=== PATIENT | female | born 1995 | race Caucasian/White ===

== ENCOUNTER → 2016-08-22 | Outpatient (CLI) | payer OTHER ==
--- NOTE | 2016-08-22 16:56 | CT ---
EXAMINATION TYPE: CT iac wo con DATE OF EXAM: 08/22/2016 4:45 PM COMPARISON: NONE HISTORY: Multiple ear surgeries and bilateral ear pain. CT DLP: 150.00mGycm Automated exposure control for dose reduction was used. FINDINGS: Partial mastoidectomies are seen bilaterally. Soft tissue within the mastoidectomy cavity o n the left has resolved as has most of the soft tissue identified previously within the left middle e ar extending into the attic ad antrum. Small amount of residual tissue is seen within the attic on th e left compatible with small residual cholesteatoma although the appearance is significantly improved relative to the prior study. On the right though there is also a small amount of soft tissue within the attic also consistent with small cholesteatoma a new finding since prior examination. Ossicular c tiffany on the right appears intact while the left-sided ossicular chain demonstrates postsurgical nagel e. Extensive pansinusitis noted. IMPRESSION: 1. Postoperative changes as discussed. 2. Soft tissue within the bilateral attic suggesting small residual cholesteatomas. As noted on the l eft there has been significant improvement.
== END ==
LOC: RADCTMAIN 16:06
PROVIDERS: ATTEND Otolaryngology Otology & Neurotology
DX: H90.6 Mixed conductive and sensorineural hearing loss, bilateral (principal); Z98.890 Other specified postprocedural states
CPT/HCPCS: 70480

== ENCOUNTER 2017-11-13 18:53 | Outpatient (CLI) | payer OTHER ==
[2017-11-13] MEDS ORDERED: ACETAMINOPHEN TAB 325 MG TAB PO STA (19:24)
[2017-11-13 19:38] LABS: Appearance,Urine Cloudy (Clear); Bacteria,Urine Occasional /hpf; Bilirubin,Urine Negative (Negative); Blood,Urine Negative (Negative); Color,Urine Yellow; Glucose,Urine (UA) Negative (Negative); Ketones,Urine Negative (Negative); Leukocyte Esterase,Urine Large (Negative); Mucus,Urine Rare /hpf; Nitrite,Urine Negative (Negative); PH, Urine 6.5 (5.0-8.0); Protein,Urine Trace (Negative); RBC,Urine 2 /hpf (0-5); Squamous Epithelial Cell,Urine 40 /hpf (0-4); Urobilinogen,Urine <2.0 mg/dL (<2.0); WBC,Urine 1 /hpf (0-5)
[2017-11-13 20:16] VITALS: BP 119/58; PULSE 88; RESP 16; TEMP 97.8
--- NOTE | 2017-12-02 07:40 | P.MSEPDOC ---
Presenting Problems - Arrival Data Date of Arrival on Unit: 11/13/17 Time of Arrival on Unit: 18:53 Mode of Transport: Wheelchair - Complaint OB-Reason for Admission/Chief Complaint: Pain Comment: mid lower abdominal pain that is constant while she is active, rates pain at an 8 out 10 during active and states pain goes away when she is sitting and resting. Medical History - Information : 2 Para: 1 Term: 1 : 0 Abortions: Spontaneous or Elective: 0 Number of Living Children: 1 - Gestational Age Gestational Age by ROBERT (wks/days): 27 Weeks and 6 Days Review of Systems - Review of Systems Constitutional: No problems Breast: No problems ENT: No problems Cardiovascular: No problems Respiratory: No problems Gastrointestinal: No problems Genitourinary: No problems Musculoskeletal: No problems Neurological: No problems Skin: No problems Vital Signs - Temperature Temperature: 97.8 F Temperature Source: Temporal Artery Scan - Pulse Left Pulse Rate: 88 Pulse Assessment Method: Automatic Cuff - Respirations Respiratory Rate: 16 Oxygen Delivery Method: Room Air O2 Sat by Pulse Oximetry: 98 - Blood Pressure Left Arm Blood Pressure: 119/58 Blood Pressure Mean: 78 Blood Pressure Source: Automatic Cuff Medical Screen Scoring (Pre) - Cervical Exam Dilation: Exam Deferred Effacement: Exam Deferred - Uterine Contractions Frequency: N/A Duration: N/A Intensity: N/A - Maternal Vital Signs Maternal Temperature: N/A Maternal Blood Pressure: N/A Signs of Preeclampsia: N/A Maternal Respirations: N/A - Pain Assessment Pain Location and Character: Lower, Medial, Abdomen Pain Scale Used: Numeric (1 - 10) Pain Intensity: 8 Pain Management Goal: 3 Pain Description: *Acute, Aching Pain Frequency: Constant Pain Duration: 3 Pain Duration Units: Days Pain Behavior: None Exhibited Pain Aggravating Factors: Activity - Maternal Trauma Maternal Trauma: N/A - Assessment Baseline FHR: 140 Position: N/A Station: N/A - Total Score Total Score (Pre): 0 - Level of Risk Level of Risk: Low (0-5) Physician Notification (Pre) - Physician Notified Physician Notified Date: 11/13/17 Physician Notified Time: 19:21 Physician/Practitioner Notifed:: Dr Chamberlain New Order Received: Yes - Notification Comment Comment: 650mg of Tylenol, send u/a, belly band for support Disposition - Disposition OB Disposition: Discharge to home Discharge Date: 11/13/17 Discharge Time: 20:10 I agree with the RN Medical Screening Exam: Yes Risk & Benefit of care provided described in d/c instruction: Yes Diagnosis: 27 WEEKS GESTATION OF
== END 2017-11-13 20:10 | disposition home or self-care (01) ==
LOC: FBPOP 18:53
PROVIDERS: ATTEND Obstetrics & Gynecology
DX: O26.893 Other specified pregnancy related conditions, third trimester (principal); R10.30 Lower abdominal pain, unspecified; Z3A.27 27 weeks gestation of pregnancy
CPT/HCPCS: 81001; G0463; 99213

== ENCOUNTER 2018-01-08 19:38 | Inpatient (IN) | payer OTHER ==
--- NOTE | 2018-01-08 22:08 | US ---
EXAMINATION TYPE: US OB >= 14 wk fetus DATE OF EXAM: 01/08/2018 COMPARISON: None CLINICAL HISTORY: DARCIE, complete OBPain check DARCIE. TECHNIQUE: Transabdominal (TA) GESTATIONAL AGE / DATING Physician Established: (35 weeks/6 days) EDC: 02/06/2018 Dates by LMP: (35 weeks/6 days) EDC: 02/06/2018 Dates by First Scan: No previous this is first scan Dates by Current Scan: (33 weeks/3 days) EDC: 02/23/2018 SURVEY IUP: Single PLACENTA: Posterior PREVIA: No Previa DARCIE: 12.4 cm Normal CERVICAL LENGTH (transabdominal: norm > 3.0cm): 3.7 cm BIOMETRY PRESENTATION: Vertex LIE: Longitudinal BPD: 8.7 cm 35 weeks / 1 days HC: 31.09 cm 34 weeks / 5 days AC: 26.13 cm 30 weeks / 2 days FL: 6.6 cm 34 weeks / 1 days ESTIMATED WEIGHT IN GRAMS: 1947 grams ESTIMATED WEIGHT IN LBS/OZ: 4 lbs. 5 oz. WEIGHT PERCENTAGE BASED ON ESTABLISHED DATES: <3% HC/AC: 1.19 Abnormal FL/AC: 25.34 Abnormal HEART RATE: 140 bpm RHYTHM: Normal Good movement. AC measured smaller. DARCIE is within normal limits. IMPRESSION: Amniotic fluid appears adequate. No complicating process seen.
[2018-01-09] MEDS: LACTATED RINGERS 1,000 ML IV SCH ×4 (01:41→13:32)
[2018-01-09 02:00] LABS: Basophils # (A) 0.1 k/uL (0-0.2); Basophils % (A) 0 %; Eosinophils # (A) 0.4 k/uL (0-0.7); Eosinophils % (A) 3 %; HCT 35.1 % (34.0-46.0); HGB 11.8 gm/dL (11.4-16.0); Lymphocytes # (A) 2.3 k/uL (1.0-4.8); Lymphocytes % (A) 16 %; MCH 28.1 pg (25.0-35.0); MCHC 33.6 g/dL (31.0-37.0); MCV 83.4 fL (80.0-100.0); Mean Platelet Volume 8.3; Monocytes # (A) 0.7 k/uL (0-1.0); Monocytes % (A) 5 %; Neutrophils # (A) 10.6 k/uL (1.3-7.7); Neutrophils % (A) 75 %; Platelet Count 187 k/uL (150-450); RBC 4.21 m/uL (3.80-5.40); WBC 14.3 k/uL (3.8-10.6)
--- NOTE | 2018-01-09 08:51 | P.HPOB ---
History of Present Illness H&P Date: 01/09/18 Chief Complaint: Irregular uterine contractions This is a 22-year-old white female 2 para 1001 EDC 02/06/2018 at 36 weeks' gestation. Patient presented last night for labor check, complaining of vaginal pressure and uterine contractions. She was not judged to be in active labor, however in evaluating heart tones occasional late variable decelerations were noted. She was kept through the night, IV was started. In reviewing heart tones, the patient is having sporadic late variable decelerations from a baseline 140 into the 80s to 90s. Ultrasound was performed , this reveals normal amniotic fluid index, but estimated weight less than 3rd percentile consistent with severe IUGR. I've discussed the case with maternal- medicine at [facility] in the recommendation is made for delivery. Past medical history is significant for seasonal ALLERGIES. Past surgical history hernia repair, eustachian tubes. Current medications vitamins daily. ALLERGIES none known. Family history significant for asthma, breast cancer, COPD, gestational diabetes , heart disease, hypertension, leukemia, osteoporosis. Past COMPUTER TECHNICAL SPECIALIST history is unremarkable. Past obstetric history normal spontaneous vaginal delivery at 39 weeks gestation in 2013 of 7 lbs. 12 oz. , unremarkable. Social history patient is single, she has never been a smoker, she denies alcohol or drug use. Obstetric history is significant for negative group B strep cultures, 1 hour Glucola 124, blood type positive, rubella status immune. Urine culture, hepatitis B surface antigen, HIV testing all negative. On exam this is a pleasant white female who is 5 foot 0 inches, 139 pounds, blood pressure 127/69. The general physical exam is within normal limits. The cervix is 2-3 cm dilated, 50% effaced, -2 station, vertex presentation. heart rate at this time is in the 140s with frequent accelerations, and occasional variable deceleration. Artificial amniorrhexis reveals clear fluid, scalp lead is applied. Uterine contractions occurring approximately every 8 minutes apart. Impression: 36 weeks intrauterine , severe IUGR, nonreassuring heart tones with late variable decelerations noted. After discussion with high corporate risk analyst, decision has been made to proceed with delivery. Plan: Oxytocin augmentation per hospital protocol. Betamethasone now for late term status. Close maternal and surveillance. Anticipate normal spontaneous vaginal delivery pending based on heart tones status. Review of Systems Constitutional: Reports as per HPI Past Medical History Past Medical History: No Reported History Additional Past Medical History / Comment(s): congenital cleft palate History of Any Multi-Drug Resistant Organisms: None Reported Past Surgical History: Ear Surgery, Hernia Repair Additional Past Surgical History / Comment(s): tubes in ears, facial/mouth reconstruction Past Anesthesia/Blood Transfusion Reactions: No Reported Reaction Past Psychological History: No Psychological Hx Reported Smoking Status: Current some day smoker Past Alcohol Use History: None Reported Past Drug Use History: None Reported - Past Family History Mother Family Medical History: Hypertension, Thyroid Disorder Medications and Allergies Home Medications Medication Instructions Recorded Confirmed Type Pnv,Calcium 72/Iron/Folic Acid 1 tab PO DAILY 11/13/17 01/08/18 History [ Plus Tablet] Allergies Allergy/AdvReac Type Severity Reaction Status Date / Time No Known Allergies Allergy Verified 01/08/18 19:51 Exam Vital Signs Temp Pulse Resp BP 01/08/18 20:44 97.5 F L 67 16 127/69 Intake and Output 01/08/18 01/09/18 01/09/18 22:59 06:59 14:59 Intake Total 1000 Balance 1000 Intake: Intake, IV Titration 1000 Amount Lactated Ringers 1,000 ml 1000 @ 125 mls/hr IV .Q8H SAVANAH Rx#:[id number] Other: # Voids 1 Weight 63.049 kg Results Result Diagrams: 01/09/18 01:40 Abnormal Lab Results - Last 24 Hours (Table) 01/09/18 Range/Units 01:40 WBC 14.3 H (3.8-10.6) k/uL Neutrophils # 10.6 H (1.3-7.7) k/uL Assessment and Plan Plan: Oxytocin augmentation at this time. Betamethasone 1. Oxytocin per hospital protocol. Betamethasone 1 now. Close maternal and surveillance. Normal spontaneous vaginal delivery versus primary pending FHT's. Time with Patient: Greater than 30
[2018-01-09] MEDS: BETAMET ACET-BETAMETH SOD PHOS 6 MG/ML VIAL IM SCH (08:55)
[2018-01-09] MEDS ORDERED: CARBOPROST TROMETHAMINE 250 MCG/ML 1 ML AMP IM PRN (08:58)
[2018-01-09] MEDS ORDERED: METHYLERGONOVINE 0.2 MG/ML 1 ML AMP IM PRN ×2 (08:58→08:59)
[2018-01-09] MEDS ORDERED: TERBUTALINE 1 MG/ML VIAL SQ PRN (08:58)
[2018-01-09] MEDS ORDERED: LIDOCAINE 1% (PF) 10 MG/ML (30 ML SDV) SQ PRN ×2 (08:58→08:59)
[2018-01-09] MEDS ORDERED: OXYTOCIN 10 UNIT/ML 1 ML VIAL IM PRN (08:58)
[2018-01-09] MEDS ORDERED: OXYTOCIN 20 UNITS/1000 ML NS 1,000 ML IV SCH (09:00)
[2018-01-09] MEDS ORDERED: ROPIVACAINE 5MG/ML 20ML VIAL ONE (13:04)
[2018-01-09] MEDS ORDERED: fentaNYL (PF) 50 MCG/ML 5 ML AMP ONE (13:04)
[2018-01-09] MEDS ORDERED: SODIUM CHLORIDE 0.9% 100 ML BAG ONE (13:04)
[2018-01-09] MEDS ORDERED: HYDROcodone/APAP 5-325MG 1 EACH TAB PO PRN (15:48)
[2018-01-09] MEDS ORDERED: ACETAMINOPHEN TAB 325 MG TAB PO PRN (15:48)
[2018-01-09] MEDS ORDERED: SIMETHICONE 80 MG CHEWABLE PO PRN (15:48)
[2018-01-09] MEDS ORDERED: HYDROCORTISONE 2.5% RECTAL CREAM 30 GM TUBE RECTAL PRN (15:48)
[2018-01-09] MEDS ORDERED: diphenhydrAMINE 50 MG/ML 1 ML VIAL IVP PRN ×2 (15:48)
[2018-01-09] MEDS ORDERED: ZOLPIDEM 5 MG TAB PO PRN (15:48)
[2018-01-09] MEDS ORDERED: BENZOCAINE/MENTHOL SPRAY 1 GM/SPRAY AEROSOL TOPICAL PRN (15:48)
[2018-01-09] MEDS ORDERED: WITCH HAZEL 1 EACH MED..PAD TOPICAL PRN (15:48)
[2018-01-09] MEDS ORDERED: diphenhydrAMINE ELIXIR 25 MG/10 ML CUP PO PRN (15:48)
[2018-01-09] MEDS ORDERED: diphenhydrAMINE 25 MG CAP PO PRN (15:48)
[2018-01-09] MEDS ORDERED: diphenhydrAMINE 50 MG CAP PO PRN (15:48)
[2018-01-09] MEDS ORDERED: LANOLIN CREAM 5 GM TUBE TOPICAL PRN (15:48)
[2018-01-09] MEDS ORDERED: IBUPROFEN 600 MG TAB PO PRN (15:48)
--- NOTE | 2018-01-09 15:48 | P.PROBDLV ---
Vaginal Delivery Note - . Vaginal Delivery Note: This is a 22-year-old white female 2 para 1001 EDC 02/06/2018 at 36 weeks' gestation. Patient presented for a labor check, variable decelerations were noted. Over the course of the evening, positive OCT was noted and patient was admitted for delivery. Group B strep cultures negative, blood type O+, rubella status immune. Celestone 12 mg was given intramuscularly, the case was discussed with maternal- medicine at [facility] prior to decision making. Artificial amniorrhexis revealed clear fluid. Epidural was placed per her request. Uterine contractions commenced more regularly, at times variable decelerations as well as late variable decelerations were noted. Position changes, oxygen administration, and IV fluid resuscitation was given with good results. Patient had a prolonged deceleration at which time decision was made for . Just prior to bringing the patient back to the operating room final vaginal exam was done and patient was noted to be with anterior lip. With excellent expulsive efforts she became completely dilated and +2 station. Perineal body was prepped and draped in usual sterile fashion. With one additional push the infant's head delivered occiput anterior and restituted accordingly. Was no nuchal cord noted. The left or anterior shoulder was delivered easily from underneath the pubic symphysis at which time the oropharynx, nasopharynx, and external nares were bulb suctioned. Patient was officially delivered vaginally of a liveborn female infant at 1525 hrs. Umbilical cord was doubly clamped and ligated, she was handed to waiting nurses for evaluation where scores of 9 and 9 at one and 5 minutes respectively are given. The cord was noted to be quite thin, but trivascular. The placenta delivered spontaneously, it was inspected and noted to be rather small, but intact at 1527 hours. Uterus was massaged. Inspection of the cervix , vagina, perineum and periurethral areas was then performed. There was a small first-degree perineal laceration easily repaired with a single figure-of- eight suture. Infant weighed 4 lbs. 12 oz. or 2160 g. Patient and her family are allowed to begin the bonding experience in the LDR. Placenta is sent to pathology for further evaluation.
[2018-01-09] MEDS: SENNOSIDES-DOCUSATE SODIUM 1 EACH TAB PO SCH (22:01)
[2018-01-10] MEDS: SENNOSIDES-DOCUSATE SODIUM 1 EACH TAB PO SCH (07:32)
[2018-01-10 09:21] VITALS: BP 132/80; PULSE 84; RESP 16; TEMP 97.9
[2018-01-10] MEDS: BETAMET ACET-BETAMETH SOD PHOS 6 MG/ML VIAL IM SCH (09:21)
--- NOTE | 2018-01-10 09:35 | P.DS ---
Providers Date of admission: 01/08/18 22:23 Expected date of discharge: 01/10/18 Attending physician: Marlin Sage Primary care physician: Stated None Hospital Course: This is a 22-year-old white female 2 para 1001 EDC 02/06/2018 at 36 weeks' gestation. Patient presented for a labor check, but was found to have variable decelerations noted on monitoring. She was admitted overnight for observation, the decelerations continued and had a late nature. Ultrasound confirmed severe IUGR, consultation over the phone was obtained per maternal medicine, steroids were given, and the decision to deliver was made. Please see my dictated history and physical for details. Artificial amniorrhexis revealed clear fluid. Oxytocin was started and titrated per hospital protocol. There were episodes of late decelerations which corrected with position change, oxygen administration, and IV fluids. Ultimately the patient progressed and delivered vaginally a liveborn female infant with scores of 9 and 9 at one and 5 minutes respectively. weighed 4 lbs. 12 oz. or 2160 g. The was a small first-degree perineal laceration easily repaired, a small appearing placenta which was sent to pathology for evaluation, and an estimated blood loss of 250 mL's. Please see my dictated delivery note for details. Today the patient is doing well. She is voiding, ambulating and passing flatus without difficulty. Vital signs are stable and she is afebrile. Fundus is firm and in the midline, symmetric and 18 week size. Extremities are negative for edema. Chest is clear in all guillory. Dexter is doing well in the nursery , he is being evaluated for temperature very sure and as well as hypoglycemia. Patient however is electing discharge home and is in very good condition for discharge. Patient will follow-up in the office with me in 6 weeks. I have reminded her no intercourse, tampons or douching. She will use [id number] ibuprofen as needed for pain. She is declining option for a breast pump prescription. I have asked her to call me with any fevers shakes or chills, foul smelling or copious lochia, with the passage of large blood clots, with any pain not alleviated by ibuprofen products, or indeed with any questions issues or concerns. We have briefly reviewed options for contraception and we will discuss this further in the office. Patient Condition at Discharge: Good Plan - Discharge Summary Discharge Rx Participant: No New Discharge Prescriptions: No Action Pnv,Calcium 72/Iron/Folic Acid [ Plus Tablet] 1 tab PO DAILY Discharge Medication List Pnv,Calcium 72/Iron/Folic Acid [ Plus Tablet] 1 tab PO DAILY 11/13/17 [ History] Follow up Appointment(s)/Referral(s): Marlin Sage MD [STAFF PHYSICIAN] - 6 Weeks Discharge Disposition: HOME SELF-CARE
[2018-01-10] MEDS: LACTATED RINGERS 1,000 ML IV SCH ×3 (11:51→11:53)
== END 2018-01-10 15:15 | disposition home or self-care (01) | DRG 775 ==
LOC: FBPOP 19:38 → OBSVTOIN 22:23 → 4FBP 22:23
PROVIDERS: ADMIT Obstetrics & Gynecology; ATTEND Obstetrics & Gynecology
PROC: 10E0XZZ Delivery of Products of Conception, External Approach (ICD-10-PCS; principal; 2018-01-09)
PROC: 0HQ9XZZ Repair Perineum Skin, External Approach (ICD-10-PCS; 2018-01-09)
DX: O76 Abnormality in fetal heart rate and rhythm complicating labor and delivery (principal); O99.52 Diseases of the respiratory system complicating childbirth; O36.5930 Maternal care for other known or suspected poor fetal growth, third trimester, not applicable or unspecified; O70.0 First degree perineal laceration during delivery; O99.334 Smoking (tobacco) complicating childbirth; F17.200 Nicotine dependence, unspecified, uncomplicated; J30.2 Other seasonal allergic rhinitis; Z37.0 Single live birth; Z3A.36 36 weeks gestation of pregnancy; Z87.730 Personal history of (corrected) cleft lip and palate; Z82.62 Family history of osteoporosis; Z82.5 Family history of asthma and other chronic lower respiratory diseases; Z82.49 Family history of ischemic heart disease and other diseases of the circulatory system; Z80.3 Family history of malignant neoplasm of breast; Z80.6 Family history of leukemia
CPT/HCPCS: 59025; 76805; 85025; 86850; 86900; 86901; 88307; 99213

== ENCOUNTER → 2018-06-11 | Outpatient (CLI) | payer OTHER ==
--- NOTE | 2018-06-11 12:46 | CT ---
EXAMINATION TYPE: CT iac wo con DATE OF EXAM: 06/11/2018 COMPARISON: 08/22/2016 HISTORY: Chronic atticoantral suppurative otitis CT DLP: 213 mGycm. Automated Exposure Control for Dose Reduction was Utilized. TECHNIQUE: CT scan of internal auditory canal is performed without contrast, thin cut axial images ar e obtained, coronal reformatted images are also reviewed. FINDINGS: Again there is evidence of bilateral partial mastoidectomies. Left ossicular implant is redemonstrate d with chronic thickening of the left tympanic membrane. The previously seen minimal soft tissue dens ity within the epitympanum could relate to granulation tissue or residual cholesteatoma. The ossicular chain on the right appears intact. There is soft tissue density extending from the scut um along the tympanic membrane retracted tympanic membrane into the mesial tympanum to the oval windo w. This appears increased from the prior of 08/22/2016 and again could represent cholesteatoma with min imal blunting of the scutum. Presacral space appears clear. Semicircular canals and vestibules bilaterally appear unremarkable. Internal auditory canals are symm etric. There is mild mucosal thickening of the maxillary sinuses, slightly polypoid in nature and minimal mu cosal thickening in the ethmoid sinuses. Visualized portion of the frontal and sphenoid sinuses are w ell aerated. Remaining mastoid air cells also appear well aerated. Orbits are symmetric. IMPRESSION: 1. Increase in density within the right mesial temporal extending from the scutum to the oval window. This could represent viscous fluid or residual cholesteatoma. Prussak's space remains clear. 2. Minimal density remaining within the left epitympanum that may relate to granulation tissue or res idual cholesteatoma. This appears similar to the prior 2016 without progression. Chronic thickening o f the left tympanic membrane is noted with left ossicular implant. 3. Improved degree of polypoid maxillary and ethmoid sinusitis.
== END | disposition home or self-care (01) ==
LOC: RADCTMAIN 11:07
PROVIDERS: ATTEND Otolaryngology Otolaryngology/Facial Plastic Surgery
DX: H93.8X2 Other specified disorders of left ear (principal); H66.22 Chronic atticoantral suppurative otitis media, left ear; R93.89 Abnormal findings on diagnostic imaging of other specified body structures
CPT/HCPCS: 70480

== ENCOUNTER 2020-02-24 13:09 | Emergency (ER) | payer OTHER ==
[2020-02-24 13:21] VITALS: TEMP 98.1
[2020-02-24 13:57] LABS: Basophils % (A) 0 %; Eosinophils # (A) 0.8 k/uL (0-0.7); Eosinophils % (A) 7 %; HCT 40.5 % (34.0-46.0); HGB 13.8 gm/dL (11.4-16.0); Lymphocytes # (A) 1.6 k/uL (1.0-4.8); Lymphocytes % (A) 14 %; MCH 29.7 pg (25.0-35.0); MCHC 34.1 g/dL (31.0-37.0); MCV 87.1 fL (80.0-100.0); Mean Platelet Volume 8.3; Monocytes # (A) 0.2 k/uL (0-1.0); Monocytes % (A) 2 %; Neutrophils # (A) 8.5 k/uL (1.3-7.7); Neutrophils % (A) 76 %; Platelet Count 178 k/uL (150-450); RBC 4.65 m/uL (3.80-5.40); RDW 12.6 % (11.5-15.5); WBC 11.2 k/uL (3.8-10.6)
[2020-02-24 14:03] LABS: Appearance,Urine Turbid (Clear); Bilirubin,Urine Negative (Negative); Blood,Urine Small (Negative); Color,Urine Yellow; Glucose,Urine (UA) Negative (Negative); Ketones,Urine Negative (Negative); Leukocyte Esterase,Urine Large (Negative); Mucus,Urine Many /hpf; Nitrite,Urine Negative (Negative); PH, Urine 6.5 (5.0-8.0); Protein,Urine 1+ (Negative); RBC,Urine 9 /hpf (0-5); Specific Gravity,Urine 1.028 (1.001-1.035); Squamous Epithelial Cell,Urine 114 /hpf (0-4); WBC,Urine 12 /hpf (0-5)
--- NOTE | 2020-02-24 14:05 | ED ---
Abdominal Pain HPI - General Chief Complaint: Abdominal Pain Stated Complaint: newly , abd pain Time Seen by Provider: 02/24/20 13:22 Source: patient Mode of arrival: ambulatory Limitations: no limitations - History of Present Illness Initial Comments: Patient is a 24-year-old female presenting to the emergency Department with complaints of lower abdominal pain that has been intermittent for the last 3-4 months. Patient states she went to [facility] yesterday to be evaluated for lightheadedness, dizziness and did a test which did return positive. Patient states she's had a IUD in place since 2018. This was last checked by Dr. Sage last year and was in place. Patient states she has been having some mild vaginal discharge, no vaginal bleeding. Patient is . She's had no abdominal surgeries. She does admit to some mild nausea, no vomiting or diarrhea. No fevers or chills. No further complaints at this time. Upon arrival to the ER, her vitals are stable. - Related Data Home Medications Medication Instructions Recorded Confirmed Pnv,Calcium 72/Iron/Folic Acid 1 tab PO DAILY 11/13/17 01/08/18 [ Plus Tablet] Previous Rx's Medication Instructions Recorded Qqt-Hfun-Tdljp Acid 1 each PO DAILY #30 cap 02/24/20 [-U Capsule] Allergies Allergy/AdvReac Type Severity Reaction Status Date / Time No Known Allergies Allergy Verified 02/24/20 13:19 Review of Systems ROS Statement: Those systems with pertinent positive or pertinent negative responses have been documented in the HPI. ROS Other: All systems not noted in ROS Statement are negative. Past Medical History Past Medical History: No Reported History Additional Past Medical History / Comment(s): congenital cleft palate History of Any Multi-Drug Resistant Organisms: None Reported Past Surgical History: Ear Surgery, Hernia Repair Additional Past Surgical History / Comment(s): tubes in ears, facial/mouth r econstruction Past Anesthesia/Blood Transfusion Reactions: No Reported Reaction Past Psychological History: No Psychological Hx Reported Smoking Status: Never smoker Past Alcohol Use History: Occasional Past Drug Use History: None Reported - Past Family History Mother Family Medical History: Hypertension, Thyroid Disorder General Exam - General Exam Comments Initial Comments: GENERAL: Patient is well-developed and well-nourished. Patient is nontoxic and in no acute distress. HEAD: Atraumatic, normocephalic. EYES: Pupils equal round and reactive to light, extraocular movements intact, sclera anicteric, conjunctiva are normal. Eyelids were unremarkable. ENT: TMs normal, nares patent, oropharynx clear without exudates. Moist mucous membranes. NECK: Normal range of motion, supple without lymphadenopathy or JVD. LUNGS: Unlabored respirations. Breath sounds clear to auscultation bilaterally and equal. No wheezes rales or rhonchi. HEART: Regular rate and rhythm without murmurs, rubs or gallops. ABDOMEN: Mild discomfort of the lower abdomen, no specific area pain. Soft, normoactive bowel sounds. No guarding, no rebound. No masses appreciated. MUSCULOSKELETAL: Normal extremities with adequate strength and normal range of motion, no pitting or edema. No clubbing or cyanosis. NEUROLOGICAL: Patient is alert and oriented x 3. Motor and sensory are also intact. Cranial nerves II through XII grossly intact. Symmetrical smile. Normal speech, normal gait. PSYCH: Normal mood, normal affect. SKIN: Warm, Dry, normal turgor, no rashes or lesions noted. Limitations: no limitations External exam: Present: normal external exam Speculum exam: Present: cervical discharge, other (No IUD string visualized.). Absent: vaginal bleeding By manual exam: Present: normal by manual exam Course Vital Signs 02/24/20 02/24/20 02/24/20 13:17 14:00 14:30 Temperature 98.1 F Pulse Rate 94 97 96 Respiratory 18 18 16 Rate Blood Pressure 103/66 118/61 114/66 O2 Sat by Pulse 98 98 98 Oximetry 02/24/20 02/24/20 02/24/20 15:00 15:30 16:00 Temperature Pulse Rate 86 90 91 Respiratory 18 18 18 Rate Blood Pressure 108/67 113/53 102/58 O2 Sat by Pulse 98 98 100 Oximetry 02/24/20 02/24/20 16:30 17:00 Temperature Pulse Rate 89 Respiratory 18 Rate Blood Pressure 105/66 108/68 O2 Sat by Pulse 98 98 Oximetry Medical Decision Making - Medical Decision Making Patient is a 24-year-old female here for lower abdominal discomfort, currently has an IUD in place with a positive test yesterday at urgent care. Her vital signs are stable, she is not having vaginal bleeding. Vaginal exam did reveal some cervical discharge, no IUD string was visualized. Labs did confirm a positive beta hCG Quant at 155,000. Urine did not reveal evidence of UTI. Trichomonas was negative, genital culture and STD testing are pending at this time. Ultrasound did confirm a viable IUP with gestational age around 11 weeks, heart rate is 162. There was concern of IUD placement within the gestational sac. I did speak with on-call OB, Dr. Sage who was aware the patient and did come down and see her in the ER. Dr. Sage was able to remove the IUD using an MANAGER [employer]CHAND[employer] hook and forceps. Patient had minimal bleeding, tolerated procedure well. Patient is stable for discharge. She will follow up with Dr. Sage within one week. Patient is agreement with this plan of care. I will give patient prescription for vitamins as well as starter pack of Zofran for continued nausea. Return parameters were discussed with the patient and she verbalized understanding. Case discussed with Dr. Leggett. - Lab Data Result diagrams: 02/24/20 13:42 02/24/20 13:42 Lab Results 02/24/20 02/24/20 02/24/20 Range/Units 13:42 13:42 13:42 WBC 11.2 H (3.8-10.6) k/uL RBC 4.65 (3.80-5.40) m/uL Hgb 13.8 (11.4-16.0) gm/dL Hct 40.5 (34.0-46.0) % MCV 87.1 (80.0-100.0) fL MCH 29.7 (25.0-35.0) pg MCHC 34.1 (31.0-37.0) g/dL RDW 12.6 (11.5-15.5) % Plt Count 178 (150-450) k/uL Neutrophils % 76 % Lymphocytes % 14 % Monocytes % 2 % Eosinophils % 7 % Basophils % 0 % Neutrophils # 8.5 H (1.3-7.7) k/uL Lymphocytes # 1.6 (1.0-4.8) k/uL Monocytes # 0.2 (0-1.0) k/uL Eosinophils # 0.8 H (0-0.7) k/uL Basophils # 0.0 (0-0.2) k/uL Sodium 135 L (137-145) mmol/L Potassium 3.8 (3.5-5.1) mmol/L Chloride 107 (98-107) mmol/L Carbon Dioxide 21 L (22-30) mmol/L Anion Gap 7 mmol/L BUN 10 (7-17) mg/dL Creatinine 0.57 (0.52-1.04) mg/dL Est GFR (CKD-EPI)AfAm >90 (>60 ml/min/1.73 sqM) Est GFR (CKD-EPI)NonAf >90 (>60 ml/min/1.73 sqM) Glucose 106 H (74-99) mg/dL Calcium 9.2 (8.4-10.2) mg/dL Total Bilirubin 0.7 (0.2-1.3) mg/dL AST 17 (14-36) U/L ALT 12 (4-34) U/L Alkaline Phosphatase 49 (38-126) U/L Total Protein 6.7 (6.3-8.2) g/dL Albumin 4.1 (3.5-5.0) g/dL HCG, Quant 687193.0 mIU/mL Urine Color Yellow Urine Appearance Turbid H (Clear) Urine pH 6.5 (5.0-8.0) Ur Specific Mad[place] 1.028 (1.001-1.035) Urine Protein 1+ H (Negative) Urine Glucose (UA) Negative (Negative) Urine Ketones Negative (Negative) Urine Blood Small H (Negative) Urine Nitrite Negative (Negative) Urine Bilirubin Negative (Negative) Urine Urobilinogen 4.0 (<2.0) mg/dL Ur Leukocyte Esterase Large H (Negative) Urine RBC 9 H (0-5) /hpf Urine WBC 12 H (0-5) /hpf Ur Squamous Epith Cells 114 H (0-4) /hpf Urine Mucus Many H (None) /hpf Trichomonas Ag (Rapid) (Negative) 02/24/20 Range/Units 13:59 WBC (3.8-10.6) k/uL RBC (3.80-5.40) m/uL Hgb (11.4-16.0) gm/dL Hct (34.0-46.0) % MCV (80.0-100.0) fL MCH (25.0-35.0) pg MCHC (31.0-37.0) g/dL RDW (11.5-15.5) % Plt Count (150-450) k/uL Neutrophils % % Lymphocytes % % Monocytes % % Eosinophils % % Basophils % % Neutrophils # (1.3-7.7) k/uL Lymphocytes # (1.0-4.8) k/uL Monocytes # (0-1.0) k/uL Eosinophils # (0-0.7) k/uL Basophils # (0-0.2) k/uL Sodium (137-145) mmol/L Potassium (3.5-5.1) mmol/L Chloride (98-107) mmol/L Carbon Dioxide (22-30) mmol/L Anion Gap mmol/L BUN (7-17) mg/dL Creatinine (0.52-1.04) mg/dL Est GFR (CKD-EPI)AfAm (>60 ml/min/1.73 sqM) Est GFR (CKD-EPI)NonAf (>60 ml/min/1.73 sqM) Glucose (74-99) mg/dL Calcium (8.4-10.2) mg/dL Total Bilirubin (0.2-1.3) mg/dL AST (14-36) U/L ALT (4-34) U/L Alkaline Phosphatase (38-126) U/L Total Protein (6.3-8.2) g/dL Albumin (3.5-5.0) g/dL HCG, Quant mIU/mL Urine Color Urine Appearance (Clear) Urine pH (5.0-8.0) Ur Specific Madeline (1.001-1.035) Urine Protein (Negative) Urine Glucose (UA) (Negative) Urine Ketones (Negative) Urine Blood (Negative) Urine Nitrite (Negative) Urine Bilirubin (Negative) Urine Urobilinogen (<2.0) mg/dL Ur Leukocyte Esterase (Negative) Urine RBC (0-5) /hpf Urine WBC (0-5) /hpf Ur Squamous Epith Cells (0-4) /hpf Urine Mucus (None) /hpf Trichomonas Ag (Rapid) Negative (Negative) Disposition Clinical Impression: Abdominal pain in , Remove/insert IUD Disposition: HOME SELF-CARE Condition: Stable Instructions (If sedation given, give patient instructions): Abdominal Pain in (ED) Additional Instructions: Please return to the Emergency Department if symptoms worsen or any other concerns. Follow-up with Dr. Sage as discussed. May take Zofran for severe nausea. Prescriptions: Une-Ximz-Moehl Acid [-U Capsule] 1 each PO DAILY #30 cap Is patient prescribed a controlled substance at d/c from ED?: No Referrals: Wisam Davis DO [Primary Care Provider] - 1-2 days Marlin Sage MD [STAFF PHYSICIAN] - 1-2 days
[2020-02-24 14:06] LABS: ALT 12 U/L (4-34); AST 17 U/L (14-36); African American GFR (CKD) >90 (>60 ml/min/1.73 sqM); Albumin 4.1 g/dL (3.5-5.0); Alkaline Phosphatase 49 U/L (38-126); Anion Gap 7 mmol/L; Blood Urea Nitrogen 10 mg/dL (7-17); Calcium 9.2 mg/dL (8.4-10.2); Carbon Dioxide 21 mmol/L (22-30); Chloride 107 mmol/L (98-107); Glucose 106 mg/dL (74-99); Non-African American GFR(CKD) >90 (>60 ml/min/1.73 sqM); Potassium 3.8 mmol/L (3.5-5.1); Sodium 135 mmol/L (137-145); Total Bilirubin 0.7 mg/dL (0.2-1.3); Total Protein 6.7 g/dL (6.3-8.2)
[2020-02-24 16:18] VITALS: RESP 18
--- NOTE | 2020-02-24 16:33 | US ---
EXAMINATION TYPE: Transabdominal DATE OF EXAM: 02/24/2020 4:18 PM COMPARISON: NONE CLINICAL HISTORY: IUD, positive test, pain. EXAM PERFORMED: Transvaginal (TV) and Transabdominal (TA), endovaginal scanning performed for better evaluation of the uterus and EXAM MEASUREMENTS: GESTATIONAL AGE / DATING Physician Established: Not yet established Dates by LMP: LMP unknown Dates by Current Scan for: (11 weeks/1 days) EDC: 09/13/2020 MATERNAL ANATOMY Uterus: 11.2 x 6.7 x 7.8 cm Right Ovary: 2.0 x 1.6 x 1.6 cm Left Ovary: 3.4 x 1.7 x 2.4 cm Post CDS / Adnexa: wnl Presence of free fluid: No Presence of corpus luteal cyst: No Presence of subchorionic bleed: No GESTATION / SURVEY CRL: 4.4 cm (11 weeks/1 days) Heart Rate: 162 bpm Rhythm: Normal IUP: Viable IUP Beta HcG (if available): Not available at this time Viable IUP with an ROBERT of 09/13/2020. Echogenic focus with posterior shadowing may represent IUD visua lized inferior to the pole, images suggest placement within the gestational sac. IMPRESSION: Single viable intrauterine corresponding to ultrasound age 11 weeks 1 day with estimated da te of delivery 09/13/2020. IUD suggested to be in place as described.
[2020-02-24 17:05] VITALS: BP 108/68; PULSE 89
[2020-02-24] MEDS ORDERED: ONDANSETRON 4 MG ODT STARTER PACK 2 TAB BTL PO STA (17:10)
--- NOTE | 2020-02-24 17:39 | P.CON ---
Consult Note - . Consult date: 02/24/20 Assessment/Plan:: This is a 24-year-old white female 3 para 2001 with a Mirena IUD placed 2 years ago who presented to the emergency room with abdominal cramping. Beta hCG is positive, and ultrasound is performed consistent with a viable 11 week intrauterine , sonographic due date 09/13/2020. In addition, there is an IUD noted in the intrauterine cavity. I have been asked to consult for management. Past medical history is essentially negative. Past surgical history is negative. Current medications none. On targeted examination there is no cervical bleeding noted upon placing a speculum into the vaginal vault. There is a yellowish vaginal discharge which has been cultured. No IUD strings are visible. The cervix is swabbed with a Acevedo lab. The IUD hook is used, however I am unable to grasp the IUD strings. I Bosman forcep is then placed into the intracervical cavity and with gentle traction the Mirena IUD is removed and noted to be fully intact. It is visualized by both the patient, nursing staff, and the patient's mother. Patient reports very minimal cramping. There is no vaginal bleeding. There is no fluid leakage. The patient tolerates the IUD removal very well. Blood type O positive. Impression 11 week viable intrauterine with sonographic due date of 09/13/2020. Status post successful removal of Mirena IUD. Plan: Patient will follow-up in the office with me within one week. She has been given a prescription for Zofran to be used as needed for nausea. She will begin vitamins on a daily basis containing Bose catheter. All questions are answered.
[2020-02-25 14:43] LABS: C. trachomatis,PCR Negative (Neg,Equiv); Chlamydia trachomatis Source Cervix; N. gonorrhoeae,PCR Negative (Neg,Equiv); Neisseria Source Cervix
== END 2020-02-24 17:35 | disposition home or self-care (01) ==
LOC: EC 13:09
DX: O99.89 Other specified diseases and conditions complicating pregnancy, childbirth and the puerperium (principal); R10.30 Lower abdominal pain, unspecified; N88.8 Other specified noninflammatory disorders of cervix uteri; R11.0 Nausea; Z30.432 Encounter for removal of intrauterine contraceptive device; Z3A.11 11 weeks gestation of pregnancy
CPT/HCPCS: 99284; 36415; 80053; 85025; 81001; 84702; 87808; 87491; 87591; 87070; 87086; 76801; 76817; S0119

== ENCOUNTER 2020-03-16 22:55 | Emergency (ER) | payer OTHER ==
--- NOTE | 2020-03-17 00:02 | ED ---
General Adult HPI - General Chief complaint: Vaginal Bleeding Stated complaint: Abdominal Pain, vaginal bleeding, pgt Time Seen by Provider: 03/16/20 23:16 Source: patient Mode of arrival: ambulatory Limitations: no limitations - History of Present Illness Initial comments: This is a 24-year-old female who presents to the emergency department this mya paz with complaints of vaginal bleeding, onset 45 minutes to one hour prior to arrival. Also complains of lower abdominal cramping. States she is 14 weeks ; . Patient had positive test at an emergency department visit earlier in the month, at the same visit she had her IUD removed by Dr. Sage, and had US showing no complications. She describes bleeding as dark red and present on tissue when she wipes, but has not soaked through a pad. She did pass one small blood clot. Reports her cramping is located in her mid lower abdomen. Denies radiation to her back. Reports mild nausea that has persisted throughout her . States she is eating and drinking without any difficulty. Patient denies any recent rash, fever, chills, cough, shortness of breath, chest pain, vomiting, diarrhea, constipation, back pain, numbness, tingling, dizziness, weakness, hematuria, dysuria, urinary urgency, urinary frequency, headache, visual changes, or any other complaints. - Related Data Home Medications Medication Instructions Recorded Confirmed Pnv,Calcium 72/Iron/Folic Acid 1 tab PO DAILY 11/13/17 01/08/18 [ Plus Tablet] Previous Rx's Medication Instructions Recorded Syw-Fpff-Xnwrp Acid 1 each PO DAILY #30 cap 02/24/20 [-U Capsule] Allergies Allergy/AdvReac Type Severity Reaction Status Date / Time No Known Allergies Allergy Verified 03/16/20 22:58 Review of Systems ROS Statement: Those systems with pertinent positive or pertinent negative responses have been documented in the HPI. ROS Other: All systems not noted in ROS Statement are negative. Past Medical History Past Medical History: No Reported History Additional Past Medical History / Comment(s): congenital cleft palate History of Any Multi-Drug Resistant Organisms: None Reported Past Surgical History: Ear Surgery, Hernia Repair Additional Past Surgical History / Comment(s): tubes in ears, facial/mouth reconstruction Past Anesthesia/Blood Transfusion Reactions: No Reported Reaction Past Psychological History: No Psychological Hx Reported Smoking Status: Never smoker Past Alcohol Use History: Occasional Past Drug Use History: None Reported - Past Family History Mother Family Medical History: Hypertension, Thyroid Disorder General Exam Limitations: no limitations General appearance: alert, in no apparent distress, other (Well-developed, well- nourished female in no acute distress. Presenting with vital signs of temperature 97.9F, pulse 98, respirations 18, blood pressure 101/67, pulse ox 97% on room air.) Respiratory exam: Present: normal lung sounds bilaterally. Absent: respiratory distress, wheezes, rales, rhonchi, stridor Cardiovascular Exam: Present: regular rate, normal rhythm, normal heart sounds. Absent: systolic murmur, diastolic murmur, rubs, gallop, clicks GI/Abdominal exam: Present: soft, tenderness (Diffuse lower abdomen), normal bowel sounds Back exam: Present: normal inspection. Absent: CVA tenderness (R), CVA tenderness (L) Neurological exam: Present: alert, oriented X3, CN II-XII intact Psychiatric exam: Present: normal affect, normal mood Skin exam: Present: warm, dry, intact, normal color. Absent: rash Course Vital Signs 03/16/20 03/17/20 03/17/20 22:56 01:54 02:59 Temperature 97.9 F 98.7 F Pulse Rate 98 68 71 Respiratory 18 18 16 Rate Blood Pressure 101/67 107/70 110/66 O2 Sat by Pulse 97 99 97 Oximetry Medical Decision Making - Medical Decision Making 24-year-old female patient presented to the emergency department today for evaluation of vaginal bleeding and lower abdominal cramping. Patient is 14 weeks , G3, P2. Physical examination did reveal mild suprapubic tenderness. No CVA tenderness. Labs reviewed and did reveal normal hemoglobin. HCG was around 149,000. Did obtain a ultrasound which showed a viable intrauterine with heart rate measuring 148, showed movement, Dr. Sanchez reported no, became processes. Upon reevaluation patient is resting comfortably in bed. She does report that bleeding has become scant. She will be discharged to follow-up with Dr. Sage as soon as possible. She is instructed to maintain pelvic rest until she is cleared by Dr. hernandes, this specifically included inserting nothing into the vagina as well as no sexual intercourse. We did discuss return parameters and great detail. She verbalizes understanding and agrees with this plan. - Lab Data Result diagrams: 03/17/20 00:03 03/17/20 00:03 Lab Results 03/17/20 03/17/20 03/17/20 Range/Units 00:03 00:03 00:03 WBC 10.9 H (3.8-10.6) k/uL RBC 4.26 (3.80-5.40) m/uL Hgb 13.1 (11.4-16.0) gm/dL Hct 36.5 (34.0-46.0) % MCV 85.6 (80.0-100.0) fL MCH 30.7 (25.0-35.0) pg MCHC 35.8 (31.0-37.0) g/dL RDW 12.7 (11.5-15.5) % Plt Count 171 (150-450) k/uL Neutrophils % 74 % Lymphocytes % 19 % Monocytes % 4 % Eosinophils % 3 % Basophils % 0 % Neutrophils # 8.0 H (1.3-7.7) k/uL Lymphocytes # 2.0 (1.0-4.8) k/uL Monocytes # 0.4 (0-1.0) k/uL Eosinophils # 0.4 (0-0.7) k/uL Basophils # 0.0 (0-0.2) k/uL Sodium 136 L (137-145) mmol/L Potassium 3.8 (3.5-5.1) mmol/L Chloride 107 (98-107) mmol/L Carbon Dioxide 23 (22-30) mmol/L Anion Gap 6 mmol/L BUN 12 (7-17) mg/dL Creatinine 0.52 (0.52-1.04) mg/dL Est GFR (CKD-EPI)AfAm >90 (>60 ml/min/1.73 sqM) Est GFR (CKD-EPI)NonAf >90 (>60 ml/min/1.73 sqM) Glucose 99 (74-99) mg/dL Calcium 8.7 (8.4-10.2) mg/dL Total Bilirubin 0.4 (0.2-1.3) mg/dL AST 17 (14-36) U/L ALT 10 (4-34) U/L Alkaline Phosphatase 49 (38-126) U/L Total Protein 6.6 (6.3-8.2) g/dL Albumin 3.9 (3.5-5.0) g/dL HCG, Quant 783602.0 mIU/mL Urine Color Yellow Urine Appearance Cloudy H (Clear) Urine pH 7.0 (5.0-8.0) Ur Specific [place] 1.019 (1.001-1.035) Urine Protein Negative (Negative) Urine Glucose (UA) Negative (Negative) Urine Ketones Negative (Negative) Urine Blood Negative (Negative) Urine Nitrite Negative (Negative) Urine Bilirubin Negative (Negative) Urine Urobilinogen 6.0 (<2.0) mg/dL Ur Leukocyte Esterase Negative (Negative) Urine RBC 1 (0-5) /hpf Urine WBC 3 (0-5) /hpf Ur Squamous Epith Cells 2 (0-4) /hpf Amorphous Sediment Rare H (None) /hpf Urine Mucus Rare H (None) /hpf Blood Type Blood Type Recheck Bld Type Recheck Status 03/17/20 Range/Units 00:04 WBC (3.8-10.6) k/uL RBC (3.80-5.40) m/uL Hgb (11.4-16.0) gm/dL Hct (34.0-46.0) % MCV (80.0-100.0) fL MCH (25.0-35.0) pg MCHC (31.0-37.0) g/dL RDW (11.5-15.5) % Plt Count (150-450) k/uL Neutrophils % % Lymphocytes % % Monocytes % % Eosinophils % % Basophils % % Neutrophils # (1.3-7.7) k/uL Lymphocytes # (1.0-4.8) k/uL Monocytes # (0-1.0) k/uL Eosinophils # (0-0.7) k/uL Basophils # (0-0.2) k/uL Sodium (137-145) mmol/L Potassium (3.5-5.1) mmol/L Chloride (98-107) mmol/L Carbon Dioxide (22-30) mmol/L Anion Gap mmol/L BUN (7-17) mg/dL Creatinine (0.52-1.04) mg/dL Est GFR (CKD-EPI)AfAm (>60 ml/min/1.73 sqM) Est GFR (CKD-EPI)NonAf (>60 ml/min/1.73 sqM) Glucose (74-99) mg/dL Calcium (8.4-10.2) mg/dL Total Bilirubin (0.2-1.3) mg/dL AST (14-36) U/L ALT (4-34) U/L Alkaline Phosphatase (38-126) U/L Total Protein (6.3-8.2) g/dL Albumin (3.5-5.0) g/dL HCG, Quant mIU/mL Urine Color Urine Appearance (Clear) Urine pH (5.0-8.0) Ur Specific [place] (1.001-1.035) Urine Protein (Negative) Urine Glucose (UA) (Negative) Urine Ketones (Negative) Urine Blood (Negative) Urine Nitrite (Negative) Urine Bilirubin (Negative) Urine Urobilinogen (<2.0) mg/dL Ur Leukocyte Esterase (Negative) Urine RBC (0-5) /hpf Urine WBC (0-5) /hpf Ur Squamous Epith Cells (0-4) /hpf Amorphous Sediment (None) /hpf Urine Mucus (None) /hpf Blood Type O Positive Blood Type Recheck O Pos Bld Type Recheck Status No - Radiology Data Radiology results: report reviewed Transabdominal OB ultrasound was obtained. findings include single intrauterine , fundal location of placenta, no previa visualized. Heart rate 148. Impression per Dr. Sanchez include gestational age of 14 weeks and one day. No complicating process seen. There is satisfactory growth compared to 02/24/2020. Disposition Clinical Impression: Threatened miscarriage, Vaginal bleeding during Disposition: HOME SELF-CARE Condition: Good Instructions (If sedation given, give patient instructions): Threatened Miscarriage (ED) Additional Instructions: Increase fluids. Rest. Follow-up with your TRAINING AND DEVELOPMENT SPECIALIST for recheck as soon as possible. Maintain pelvic rest, do not insert anything into the vagina, no sexual intercourse until you are cleared by her TRAINING AND DEVELOPMENT SPECIALIST. Return to the emergency department immediately for any new, worsening, or concerning symptoms. Is patient prescribed a controlled substance at d/c from ED?: No Referrals: Wisam Davis DO [Primary Care Provider] - 1-2 days Marlin Sage MD [STAFF PHYSICIAN] - 1-2 days Time of Disposition: 02:41
[2020-03-17] MEDS ORDERED: ACETAMINOPHEN TAB 500 MG TAB PO STA (00:03)
[2020-03-17] MEDS ORDERED: SODIUM CHLORIDE 0.9% 1,000 ML IV ONE (00:03)
[2020-03-17 00:33] LABS: Basophils % (A) 0 %; Eosinophils # (A) 0.4 k/uL (0-0.7); Eosinophils % (A) 3 %; HCT 36.5 % (34.0-46.0); HGB 13.1 gm/dL (11.4-16.0); Lymphocytes % (A) 19 %; MCH 30.7 pg (25.0-35.0); MCHC 35.8 g/dL (31.0-37.0); MCV 85.6 fL (80.0-100.0); Mean Platelet Volume 8.2; Monocytes # (A) 0.4 k/uL (0-1.0); Monocytes % (A) 4 %; Neutrophils % (A) 74 %; Platelet Count 171 k/uL (150-450); RBC 4.26 m/uL (3.80-5.40); RDW 12.7 % (11.5-15.5); WBC 10.9 k/uL (3.8-10.6)
[2020-03-17 00:36] LABS: ALT 10 U/L (4-34); AST 17 U/L (14-36); African American GFR (CKD) >90 (>60 ml/min/1.73 sqM); Albumin 3.9 g/dL (3.5-5.0); Alkaline Phosphatase 49 U/L (38-126); Anion Gap 6 mmol/L; Blood Urea Nitrogen 12 mg/dL (7-17); Calcium 8.7 mg/dL (8.4-10.2); Carbon Dioxide 23 mmol/L (22-30); Chloride 107 mmol/L (98-107); Glucose 99 mg/dL (74-99); Non-African American GFR(CKD) >90 (>60 ml/min/1.73 sqM); Potassium 3.8 mmol/L (3.5-5.1); Sodium 136 mmol/L (137-145); Total Bilirubin 0.4 mg/dL (0.2-1.3); Total Protein 6.6 g/dL (6.3-8.2)
[2020-03-17 00:37] LABS: Amorphous Sediment,Urine Rare /hpf; Appearance,Urine Cloudy (Clear); Bilirubin,Urine Negative (Negative); Blood,Urine Negative (Negative); Color,Urine Yellow; Glucose,Urine (UA) Negative (Negative); Ketones,Urine Negative (Negative); Leukocyte Esterase,Urine Negative (Negative); Mucus,Urine Rare /hpf; Nitrite,Urine Negative (Negative); Protein,Urine Negative (Negative); RBC,Urine 1 /hpf (0-5); Specific Gravity,Urine 1.019 (1.001-1.035); Squamous Epithelial Cell,Urine 2 /hpf (0-4); WBC,Urine 3 /hpf (0-5)
--- NOTE | 2020-03-17 01:44 | US ---
EXAMINATION TYPE: US OB >= 14 wk fetus DATE OF EXAM: 03/17/2020 COMPARISON: US 02/24/2020 CLINICAL HISTORY: painPain x 5 days. . TECHNIQUE: Transabdominal (TA) GESTATIONAL AGE / DATING Physician Established: (14 weeks/1 day) EDC: 09/13/2020 Dates by LMP: Unknown Dates by First Scan: : (14 weeks/1 day) EDC: 09/13/2020 Dates by Current Scan: (14 weeks/ 6 days) EDC: 09/09/2020 Beta HCG (if available): Not available. SURVEY IUP: Single PLACENTA: Fundal PREVIA: No Previa DARCIE: 11.49 cm Normal CERVICAL LENGTH (transabdominal: norm > 3.0cm): 4.7 cm BIOMETRY PRESENTATION: Breech BPD: 2.64 cm 14 weeks / 4 days HC: 10.08 cm 14 weeks / 5 days AC: 8.39 cm 14 weeks / 5 days FL: 1.45 cm 14 weeks / 2 days ESTIMATED WEIGHT IN GRAMS: 99.69 grams ESTIMATED WEIGHT IN LBS/OZ: 0 lbs. 4 oz. WEIGHT PERCENTAGE BASED ON ESTABLISHED DATES: 61.6% HC/AC: 1.20 Normal FL/AC: 17.28 HEART RATE: 148 bpm RHYTHM: Normal Limited head measurements due to movement. IMPRESSION: The ultrasound gestational age is 14 weeks and 1 day. No complicating process seen. There is satisfac tory growth compared to February 24, 2020.
[2020-03-17 03:01] VITALS: BP 110/66; PULSE 71; RESP 16; TEMP 98.7
== END 2020-03-17 02:59 | disposition home or self-care (01) ==
LOC: EC 22:55
DX: O20.0 Threatened abortion (principal); Z3A.14 14 weeks gestation of pregnancy
CPT/HCPCS: 36415; 76805; 80053; 81001; 84702; 85025; 86900; 86901; 96360; 96361; 99283

== ENCOUNTER 2020-03-20 11:52 | Emergency (ER) | payer OTHER ==
[2020-03-20 12:01] VITALS: BP 102/69; PULSE 89; RESP 16; TEMP 97.9
[2020-03-20] MEDS ORDERED: ACETAMINOPHEN TAB 325 MG TAB PO STA (12:05)
[2020-03-20 13:00] LABS: Basophils % (A) 0 %; Eosinophils # (A) 0.5 k/uL (0-0.7); Eosinophils % (A) 5 %; HCT 38.2 % (34.0-46.0); HGB 13.1 gm/dL (11.4-16.0); Lymphocytes # (A) 1.4 k/uL (1.0-4.8); Lymphocytes % (A) 14 %; MCH 29.3 pg (25.0-35.0); MCHC 34.3 g/dL (31.0-37.0); MCV 85.6 fL (80.0-100.0); Mean Platelet Volume 8.2; Monocytes # (A) 0.3 k/uL (0-1.0); Monocytes % (A) 3 %; Neutrophils # (A) 7.3 k/uL (1.3-7.7); Neutrophils % (A) 76 %; Platelet Count 156 k/uL (150-450); RBC 4.46 m/uL (3.80-5.40); RDW 12.6 % (11.5-15.5); WBC 9.6 k/uL (3.8-10.6)
[2020-03-20 13:16] LABS: Appearance,Urine Cloudy (Clear); Bilirubin,Urine Negative (Negative); Blood,Urine Negative (Negative); Color,Urine Yellow; Glucose,Urine (UA) Negative (Negative); Ketones,Urine Negative (Negative); Leukocyte Esterase,Urine Small (Negative); Mucus,Urine Rare /hpf; Nitrite,Urine Negative (Negative); PH, Urine 6.5 (5.0-8.0); Protein,Urine Negative (Negative); RBC,Urine <1 /hpf (0-5); Specific Gravity,Urine 1.014 (1.001-1.035); Squamous Epithelial Cell,Urine 13 /hpf (0-4); Urobilinogen,Urine <2.0 mg/dL (<2.0); WBC,Urine 2 /hpf (0-5)
[2020-03-20 13:19] LABS: ALT 11 U/L (4-34); AST 16 U/L (14-36); African American GFR (CKD) >90 (>60 ml/min/1.73 sqM); Albumin 3.8 g/dL (3.5-5.0); Alkaline Phosphatase 44 U/L (38-126); Anion Gap 5 mmol/L; Blood Urea Nitrogen 7 mg/dL (7-17); Calcium 8.7 mg/dL (8.4-10.2); Carbon Dioxide 23 mmol/L (22-30); Chloride 106 mmol/L (98-107); Glucose 93 mg/dL (74-99); Non-African American GFR(CKD) >90 (>60 ml/min/1.73 sqM); Potassium 3.8 mmol/L (3.5-5.1); Sodium 134 mmol/L (137-145); Total Bilirubin 0.7 mg/dL (0.2-1.3); Total Protein 6.5 g/dL (6.3-8.2)
--- NOTE | 2020-03-20 13:31 | US ---
EXAMINATION TYPE: US OB >= 14 wk fetus DATE OF EXAM: 03/20/2020 COMPARISON: US 03/17/2020 CLINICAL HISTORY: 14 weeks abdominal pain TECHNIQUE: Transabdominal (TA) GESTATIONAL AGE / DATING Physician Established: (14 weeks/5 days) EDC: 09/13/2020 Dates by Current Scan: (15 weeks/0 days) EDC: 09/11/2020 SURVEY IUP: Single PLACENTA: Anterior PREVIA: No Previa DARCIE: 11.3 cm Normal CERVICAL LENGTH (transabdominal: norm > 3.0cm): 4.0 cm BIOMETRY PRESENTATION: Vertex LIE: Longitudinal BPD: 2.8 cm 15 weeks / 0 days HC: 10.7 cm 15 weeks / 1 days AC: 8.6 cm 15 weeks / 0 days FL: 1.5 cm 14 weeks / 3 days ESTIMATED WEIGHT IN GRAMS: 103 grams HC/AC: 1.24 Normal FL/AC: 17 Normal HEART RATE: 133 bpm RHYTHM: Normal Viable IUP, measurements consistent with dates. Impressions: 1. Single intrauterine gestation estimated at 15 weeks 0 days based on ultrasound measurements.. Card iac activity measures 133 bpm.
--- NOTE | 2020-03-20 14:00 | ED ---
Abdominal Pain HPI - General Chief Complaint: Abdominal Pain Stated Complaint: Abd pain, 14 weeks Time Seen by Provider: 03/20/20 12:04 Source: patient, family Mode of arrival: ambulatory Limitations: no limitations - History of Present Illness Initial Comments: 24-year-old feel presenting today for chief complaint of lower abdominal pain and she states she has had some crampy lower abdominal pain. She states she was here last week and diagnosed with and her IUD was removed. Patient states that she has had some on-and-off cramping since she denies any vaginal bleeding position vaginal bleeding last week with removal of IUD. Patient denies any nausea vomiting weakness she denies any conservative resection or transmitted diseases. She denies any external vaginal irritation she denies any specific right lower quadrant pain she states is midline she denies any back pain fevers dysuria urgency frequency. Patient has no additional complaints upon arrival she appears well nontoxic distress. She took Tylenol prior to arrival - Related Data Home Medications Medication Instructions Recorded Confirmed Pnv,Calcium 72/Iron/Folic Acid 1 tab PO DAILY 11/13/17 01/08/18 [ Plus Tablet] Previous Rx's Medication Instructions Recorded Uph-Qoyq-Njdah Acid 1 each PO DAILY #30 cap 02/24/20 [-U Capsule] Clotrimazole [Clotrimazole 2% (3 1 applicator VAGINAL HS 3 Days #21 03/20/20 day)] gm Allergies Allergy/AdvReac Type Severity Reaction Status Date / Time No Known Allergies Allergy Verified 03/20/20 12:01 Review of Systems ROS Statement: Those systems with pertinent positive or pertinent negative responses have been documented in the HPI. ROS Other: All systems not noted in ROS Statement are negative. Past Medical History Past Medical History: No Reported History Additional Past Medical History / Comment(s): congenital cleft palate History of Any Multi-Drug Resistant Organisms: None Reported Past Surgical History: Ear Surgery, Hernia Repair Additional Past Surgical History / Comment(s): tubes in ears, facial/mouth reconstruction Past Anesthesia/Blood Transfusion Reactions: No Reported Reaction Past Psychological History: No Psychological Hx Reported Smoking Status: Never smoker Past Alcohol Use History: Occasional Past Drug Use History: None Reported - Past Family History Mother Family Medical History: Hypertension, Thyroid Disorder General Exam - General Exam Comments Initial Comments: General: The patient is awake and alert, in no distress Eye: Pupils are equal, round and reactive to light, extra-ocular movements are intact. No nystagmus. There is normal conjunctiva bilaterally. No signs of icterus. Ears, nose, mouth and throat: There are moist mucous membranes and no oral lesions. Neck: The neck is supple, there is no tenderness or JVD. Cardiovascular: There is a regular rate and rhythm. No murmur, rub or gallop is appreciated. Respiratory: Lungs are clear to auscultation, respirations are non-labored, breath sounds are equal. No wheezes, stridor, rales, or rhonchi. Gastrointestinal: Soft, non-tender abdomen without masses or organomegaly noted. There is no rebound or guarding present. : scant amount of discharge, no cervical motion or adnexal tenderness. Musculoskeletal: Normal ROM, no tenderness. Strength 5/5. Sensation intact. Pulses equal bilaterally 2+. Neurological: A&O x 3. CN II-XII intact grossly, There are no obvious motor or sensory deficits. Coordination appears grossly intact. Speech is normal. Skin: Skin is warm and dry and no rashes or lesions are noted. Psychiatric: Cooperative, appropriate mood & affect, normal judgment. Limitations: no limitations Course Vital Signs 03/20/20 11:59 Temperature 97.9 F Pulse Rate 89 Respiratory 16 Rate Blood Pressure 102/69 O2 Sat by Pulse 99 Oximetry Medical Decision Making - Medical Decision Making US WNL. Discharge in vautl thick white will treat for yeast. STI testing pending. Labs stable. pt appears nontoxic. no bleeding no rlq pain or severe pain. Patient yue be discharge with OB and pcp f/u. Patient is agreeable to car eplan and discharge a this time. case discussed with attending. - Lab Data Result diagrams: 03/20/20 12:40 03/20/20 12:40 Lab Results 03/20/20 03/20/20 03/20/20 Range/Units 12:40 12:40 12:40 WBC 9.6 (3.8-10.6) k/uL RBC 4.46 (3.80-5.40) m/uL Hgb 13.1 (11.4-16.0) gm/dL Hct 38.2 (34.0-46.0) % MCV 85.6 (80.0-100.0) fL MCH 29.3 (25.0-35.0) pg MCHC 34.3 (31.0-37.0) g/dL RDW 12.6 (11.5-15.5) % Plt Count 156 (150-450) k/uL Neutrophils % 76 % Lymphocytes % 14 % Monocytes % 3 % Eosinophils % 5 % Basophils % 0 % Neutrophils # 7.3 (1.3-7.7) k/uL Lymphocytes # 1.4 (1.0-4.8) k/uL Monocytes # 0.3 (0-1.0) k/uL Eosinophils # 0.5 (0-0.7) k/uL Basophils # 0.0 (0-0.2) k/uL Sodium 134 L (137-145) mmol/L Potassium 3.8 (3.5-5.1) mmol/L Chloride 106 (98-107) mmol/L Carbon Dioxide 23 (22-30) mmol/L Anion Gap 5 mmol/L BUN 7 (7-17) mg/dL Creatinine 0.53 (0.52-1.04) mg/dL Est GFR (CKD-EPI)AfAm >90 (>60 ml/min/1.73 sqM) Est GFR (CKD-EPI)NonAf >90 (>60 ml/min/1.73 sqM) Glucose 93 (74-99) mg/dL Calcium 8.7 (8.4-10.2) mg/dL Total Bilirubin 0.7 (0.2-1.3) mg/dL AST 16 (14-36) U/L ALT 11 (4-34) U/L Alkaline Phosphatase 44 (38-126) U/L Total Protein 6.5 (6.3-8.2) g/dL Albumin 3.8 (3.5-5.0) g/dL Urine Color Yellow Urine Appearance Cloudy H (Clear) Urine pH 6.5 (5.0-8.0) Ur Specific [place] 1.014 (1.001-1.035) Urine Protein Negative (Negative) Urine Glucose (UA) Negative (Negative) Urine Ketones Negative (Negative) Urine Blood Negative (Negative) Urine Nitrite Negative (Negative) Urine Bilirubin Negative (Negative) Urine Urobilinogen <2.0 (<2.0) mg/dL Ur Leukocyte Esterase Small H (Negative) Urine RBC <1 (0-5) /hpf Urine WBC 2 (0-5) /hpf Ur Squamous Epith Cells 13 H (0-4) /hpf Urine Mucus Rare H (None) /hpf Trichomonas Ag (Rapid) (Negative) Blood Type Blood Type Recheck Bld Type Recheck Status 03/20/20 03/20/20 Range/Units 12:40 14:13 WBC (3.8-10.6) k/uL RBC (3.80-5.40) m/uL Hgb (11.4-16.0) gm/dL Hct (34.0-46.0) % MCV (80.0-100.0) fL MCH (25.0-35.0) pg MCHC (31.0-37.0) g/dL RDW (11.5-15.5) % Plt Count (150-450) k/uL Neutrophils % % Lymphocytes % % Monocytes % % Eosinophils % % Basophils % % Neutrophils # (1.3-7.7) k/uL Lymphocytes # (1.0-4.8) k/uL Monocytes # (0-1.0) k/uL Eosinophils # (0-0.7) k/uL Basophils # (0-0.2) k/uL Sodium (137-145) mmol/L Potassium (3.5-5.1) mmol/L Chloride (98-107) mmol/L Carbon Dioxide (22-30) mmol/L Anion Gap mmol/L BUN (7-17) mg/dL Creatinine (0.52-1.04) mg/dL Est GFR (CKD-EPI)AfAm (>60 ml/min/1.73 sqM) Est GFR (CKD-EPI)NonAf (>60 ml/min/1.73 sqM) Glucose (74-99) mg/dL Calcium (8.4-10.2) mg/dL Total Bilirubin (0.2-1.3) mg/dL AST (14-36) U/L ALT (4-34) U/L Alkaline Phosphatase (38-126) U/L Total Protein (6.3-8.2) g/dL Albumin (3.5-5.0) g/dL Urine Color Urine Appearance (Clear) Urine pH (5.0-8.0) Ur Specific [place] (1.001-1.035) Urine Protein (Negative) Urine Glucose (UA) (Negative) Urine Ketones (Negative) Urine Blood (Negative) Urine Nitrite (Negative) Urine Bilirubin (Negative) Urine Urobilinogen (<2.0) mg/dL Ur Leukocyte Esterase (Negative) Urine RBC (0-5) /hpf Urine WBC (0-5) /hpf Ur Squamous Epith Cells (0-4) /hpf Urine Mucus (None) /hpf Trichomonas Ag (Rapid) Negative (Negative) Blood Type O Positive Blood Type Recheck O Pos Bld Type Recheck Status No Disposition Clinical Impression: Vaginal discharge, Abdominal cramping affecting Disposition: HOME SELF-CARE Condition: Good Instructions (If sedation given, give patient instructions): Yeast Infection (ED), Abdominal Pain in (ED) Additional Instructions: Please use medication as discussed. Please follow-up with OBGYN in next week. Please return to emergency room if the symptoms increase or worsen or for any other concerns. Prescriptions: Clotrimazole [Clotrimazole 2% (3 day)] 1 applicator VAGINAL HS 3 Days #21 gm Is patient prescribed a controlled substance at d/c from ED?: No Referrals: Wisam Davis DO [Primary Care Provider] - 1-2 days Marlin Sage MD [STAFF PHYSICIAN] - 1-2 days Time of Disposition: 14:00
== END 2020-03-20 14:34 | disposition home or self-care (01) ==
LOC: EC 11:52
DX: O26.892 Other specified pregnancy related conditions, second trimester (principal); Z3A.15 15 weeks gestation of pregnancy
CPT/HCPCS: 36415; 76805; 80053; 81001; 85025; 86900; 86901; 87070; 87491; 87591; 87808; 99284

== ENCOUNTER 2020-04-26 17:52 | Outpatient (CLI) | payer OTHER ==
[2020-04-26 18:37] LABS: Appearance,Urine Clear (Clear); Bilirubin,Urine Negative (Negative); Blood,Urine Negative (Negative); Color,Urine Yellow; Glucose,Urine (UA) Negative (Negative); Ketones,Urine Negative (Negative); Leukocyte Esterase,Urine Negative (Negative); Nitrite,Urine Negative (Negative); Protein,Urine Negative (Negative)
[2020-04-26 18:58] VITALS: BP 122/68; PULSE 93; RESP 18; TEMP 97
== END 2020-04-26 18:55 | disposition home or self-care (01) ==
LOC: FBPOP 17:52
PROVIDERS: ATTEND Obstetrics & Gynecology Obstetrics
DX: O26.892 Other specified pregnancy related conditions, second trimester (principal); R10.31 Right lower quadrant pain; Z3A.20 20 weeks gestation of pregnancy
CPT/HCPCS: 81003; G0463; 99213

== ENCOUNTER 2020-06-24 01:15 | Outpatient (CLI) | payer OTHER ==
[2020-06-24 01:30] VITALS: BP 116/60; PULSE 80; RESP 16; TEMP 97.8
--- NOTE | 2020-08-06 10:19 | P.MSEPDOC ---
Presenting Problems - Arrival Data Date of Arrival on Unit: 06/24/20 Time of Arrival on Unit: 01:25 Mode of Transport: Ambulatory - Complaint OB-Reason for Admission/Chief Complaint: Possible Onset of Labor, Rule Out PROM Medical History - Information : 3 Para: 2 Term: 1 : 1 Abortions: Spontaneous or Elective: 0 Number of Living Children: 2 - Gestational Age Gestational Age by ROBERT (wks/days): 28 Weeks and 3 Days Review of Systems - Review of Systems Constitutional: No problems Breast: No problems ENT: No problems Cardiovascular: No problems Respiratory: No problems Gastrointestinal: No problems Genitourinary: No problems Musculoskeletal: No problems Neurological: No problems Skin: No problems Vital Signs - Temperature Temperature: 97.8 F Temperature Source: Temporal Artery Scan - Pulse Right Brachial Pulse Rate: 80 Pulse Assessment Method: Automatic Cuff - Respirations Respiratory Rate: 16 Oxygen Delivery Method: Room Air O2 Sat by Pulse Oximetry: 100 - Blood Pressure Right Arm Blood Pressure: 116/60 Blood Pressure Mean: 78 Blood Pressure Source: Automatic Cuff Physician Notification (Pre) - Physician Notified New Order Received: Yes Disposition - Disposition OB Disposition: Discharge to home Discharge Date: 06/24/20 Discharge Time: 02:19 I agree with the RN Medical Screening Exam: Yes Physician's MSE Comment: I have neither seen nor examined the patient. Case reviewed; plan agreed upon as documented in EMR&OBIX.: Yes Diagnosis: RELATED CONDITIONS, UNSPECIFIED, THIRD TRIMESTER
== END 2020-06-24 02:26 | disposition home or self-care (01) ==
LOC: FBPOP 01:15
PROVIDERS: ATTEND Obstetrics & Gynecology
DX: O26.93 Pregnancy related conditions, unspecified, third trimester (principal); Z3A.28 28 weeks gestation of pregnancy
CPT/HCPCS: 99213

== ENCOUNTER → 2020-07-07 | Outpatient (CLI) | payer OTHER | END | disposition home or self-care (01) | LOC: LABWHC1 09:34 | PROVIDERS: ATTEND Family Medicine | DX: Z20.822 Contact with and (suspected) exposure to COVID-19 (principal) | CPT/HCPCS: U0003; C9803; U0005 ==

== ENCOUNTER 2020-07-10 16:57 | Outpatient (CLI) | payer OTHER ==
[2020-07-10 17:39] VITALS: BP 120/70; PULSE 74; RESP 18; TEMP 96.8
--- NOTE | 2020-08-09 18:58 | P.MSEPDOC ---
Presenting Problems - Arrival Data Date of Arrival on Unit: 07/10/20 Time of Arrival on Unit: 16:57 Mode of Transport: Ambulatory - Complaint OB-Reason for Admission/Chief Complaint: Pain Comment: pt sent up from ER due to tightening and cramping from coughing, pt also has sore throat, and ear pain Medical History - Information : 3 Para: 2 Term: 1 : 1 Abortions: Spontaneous or Elective: 0 Number of Living Children: 2 - Gestational Age Gestational Age by ROBERT (wks/days): 30 Weeks and 5 Days Review of Systems - Review of Systems Constitutional: No problems Breast: No problems ENT: No problems Cardiovascular: No problems Respiratory: No problems Gastrointestinal: No problems Genitourinary: No problems Musculoskeletal: No problems Neurological: No problems Skin: No problems Vital Signs - Temperature Temperature: 96.8 F Temperature Source: Temporal Artery Scan - Pulse Right Brachial Pulse Rate: 74 Pulse Assessment Method: Automatic Cuff - Respirations Respiratory Rate: 18 Oxygen Delivery Method: Room Air O2 Sat by Pulse Oximetry: 98 - Blood Pressure Right Arm Blood Pressure: 120/70 Blood Pressure Mean: 86 Blood Pressure Source: Automatic Cuff Medical Screen Scoring (Pre) - Cervical Exam Dilation: Exam Deferred Effacement: Exam Deferred Membranes: Intact - Uterine Contractions Frequency: N/A Duration: N/A Intensity: N/A - Maternal Vital Signs Maternal Temperature: N/A Maternal Blood Pressure: N/A Signs of Preeclampsia: N/A Maternal Respirations: N/A - Maternal Trauma Maternal Trauma: N/A - Assessment - Baby A Baseline FHR: 140 Heart Rate - NICHD Category: Category I (Normal) = 0 NST: Reactive Position: N/A Station: N/A - Total Score - Baby A Total Score - Baby A: 0 - Total Score - Baby B Total Score - Baby B: 0 - Total Score - Baby C Total Score - Baby C: 0 - Level of Risk - Baby A Level of Risk - Baby A: Low (0-5) - Level of Risk - Baby B Level of Risk - Baby B: Low (0-5) - Level of Risk - Baby C Level of Risk - Baby C: Low (0-5) Physician Notification (Pre) - Physician Notified Physician Notified Date: 07/10/20 Physician Notified Time: 17:06 New Order Received: Yes - Notification Comment Comment: reactive nst, pt sent back down to ER for further assessment of coughing, sore throat, and ear pain Disposition - Disposition OB Disposition: Triage, Discharge to home, Written follow up instructions reviewed Discharge Date: 07/10/20 Discharge Time: 17:25 I agree with the RN Medical Screening Exam: No Case reviewed; plan agreed upon as documented in EMR&OBIX.: No Comments: onable to access obix record for this visit Diagnosis: third trimester
== END 2020-07-10 17:25 | disposition home or self-care (01) ==
LOC: FBPOP 16:57
PROVIDERS: ATTEND Obstetrics & Gynecology
DX: Z36.2 Encounter for other antenatal screening follow-up (principal); Z3A.30 30 weeks gestation of pregnancy
CPT/HCPCS: 59025; G0463; 99213

== ENCOUNTER 2020-07-10 17:36 | Emergency (ER) | payer OTHER ==
--- NOTE | 2020-07-10 17:57 | ED ---
General Adult HPI - General Chief complaint: Upper Respiratory Infection Stated complaint: Sore Throat Time Seen by Provider: 07/10/20 17:48 Source: patient, RN notes reviewed Mode of arrival: ambulatory Limitations: no limitations - History of Present Illness Initial comments: 25-year-old female presents emergency Department with chief complaint of ongoing nasal congestion cough sore throat. Patient had a negative covid testing patient has some abdominal cramping today was seen by labor and delivery had a normal checkup. Patient was sent him here for further evaluation. Patient denies fevers chills no sick contacts no chest pain no significant shortness of breath. - Related Data Previous Rx's Medication Instructions Recorded Ecg-Inyj-Umhoa Acid 1 each PO DAILY #30 cap 02/24/20 [-U Capsule] Amoxicillin/Potassium Clav 1 tab PO Q12HR #20 tab 07/10/20 [Augmentin 875-125 Tablet] Allergies Allergy/AdvReac Type Severity Reaction Status Date / Time No Known Allergies Allergy Verified 07/10/20 17:47 Review of Systems ROS Statement: Those systems with pertinent positive or pertinent negative responses have been documented in the HPI. ROS Other: All systems not noted in ROS Statement are negative. Past Medical History Past Medical History: No Reported History Additional Past Medical History / Comment(s): congenital cleft palate History of Any Multi-Drug Resistant Organisms: None Reported Past Surgical History: Ear Surgery, Hernia Repair Additional Past Surgical History / Comment(s): tubes in ears, facial/mouth reconstruction Past Anesthesia/Blood Transfusion Reactions: No Reported Reaction Past Psychological History: No Psychological Hx Reported Smoking Status: Never smoker Past Alcohol Use History: None Reported Past Drug Use History: None Reported - Past Family History Mother Family Medical History: Hypertension, Thyroid Disorder General Exam Limitations: no limitations General appearance: alert, in no apparent distress Head exam: Present: atraumatic, normocephalic, normal inspection Eye exam: Present: normal appearance, PERRL, EOMI. Absent: scleral icterus, conjunctival injection, periorbital swelling ENT exam: Present: mucous membranes moist, normal external ear exam. Absent: normal exam, normal oropharynx (Postnasal drainage mild erythema), TM's normal bilaterally (Fluid noted right) Neck exam: Present: normal inspection, full ROM. Absent: tenderness, meningismus, lymphadenopathy Respiratory exam: Present: normal lung sounds bilaterally. Absent: respiratory distress, wheezes, rales, rhonchi, stridor Cardiovascular Exam: Present: regular rate, normal rhythm, normal heart sounds. Absent: systolic murmur, diastolic murmur, rubs, gallop, clicks GI/Abdominal exam: Present: soft, normal bowel sounds. Absent: distended, tenderness, guarding, rebound, rigid Course Vital Signs 07/10/20 17:44 Temperature 97.9 F Pulse Rate 78 Respiratory 18 Rate Blood Pressure 116/69 O2 Sat by Pulse 98 Oximetry Medical Decision Making - Medical Decision Making Patient was treated for acute sinusitis. Patient discharged in stable condition. Return parameters were discussed. Disposition Clinical Impression: Sinusitis Disposition: HOME SELF-CARE Condition: Stable Instructions (If sedation given, give patient instructions): Upper Respiratory Infection (ED) Additional Instructions: Please return to the Emergency Department if symptoms worsen or any other concerns. Prescriptions: Amoxicillin/Potassium Clav [Augmentin 875-125 Tablet] 1 tab PO Q12HR #20 tab Is patient prescribed a controlled substance at d/c from ED?: No Referrals: Wisam Davis DO [Primary Care Provider] - 1-2 days Time of Disposition: 17:56
[2020-07-10] MEDS ORDERED: AMOXIC-POT CLAV 875MG STARTER PACK 2 TAB BTL PO STA (18:03)
[2020-07-10 18:13] VITALS: BP 118/70; PULSE 74; RESP 16; TEMP 98.1
== END 2020-07-10 18:12 | disposition home or self-care (01) ==
LOC: EC 17:36
DX: O99.513 Diseases of the respiratory system complicating pregnancy, third trimester (principal); J01.90 Acute sinusitis, unspecified; O26.893 Other specified pregnancy related conditions, third trimester; R10.9 Unspecified abdominal pain; Z3A.30 30 weeks gestation of pregnancy
CPT/HCPCS: 99282

== ENCOUNTER 2020-08-05 18:43 | Outpatient (CLI) | payer OTHER ==
[2020-08-05] MEDS: LACTATED RINGERS 1,000 ML IV SCH ×2 (19:26→20:16)
[2020-08-05 20:17] LABS: Appearance,Urine Clear (Clear); Bilirubin,Urine Negative (Negative); Blood,Urine Negative (Negative); Color,Urine Light Yellow; Glucose,Urine (UA) 4+ (Negative); Ketones,Urine Negative (Negative); Leukocyte Esterase,Urine Negative (Negative); Nitrite,Urine Negative (Negative); PH, Urine 6.5 (5.0-8.0); Protein,Urine Negative (Negative); Specific Gravity,Urine 1.009 (1.001-1.035); Urobilinogen,Urine <2.0 mg/dL (<2.0)
[2020-08-05] MEDS ORDERED: TERBUTALINE 1 MG/ML VIAL SQ PRN (20:25)
[2020-08-05] MEDS ORDERED: BETAMET ACET-BETAMETH SOD PHOS 6 MG/ML MDV IM SCH (21:00)
[2020-08-05 22:08] VITALS: BP 139/65; PULSE 71; RESP 16; TEMP 98.1
--- NOTE | 2020-08-06 09:55 | P.MSEPDOC ---
Presenting Problems - Arrival Data Date of Arrival on Unit: 08/05/20 Time of Arrival on Unit: 18:47 Mode of Transport: Ambulatory - Complaint OB-Reason for Admission/Chief Complaint: Possible Onset of Labor Comment: pt. states contractions that started today around 2pm around every 5-10 min, since present to triage contractions tracing every 3-5 min, pt. states contraction pain 8/10. Medical History - Information : 3 Para: 2 Term: 1 : 1 Abortions: Spontaneous or Elective: 0 Number of Living Children: 2 - Gestational Age Gestational Age by ROBERT (wks/days): 34 Weeks and 3 Days - History Comment: pt. didnt know she was unit 3 months- IUD then was removed Review of Systems - Review of Systems Constitutional: No problems Breast: No problems ENT: No problems Cardiovascular: No problems Respiratory: No problems Gastrointestinal: No problems Genitourinary: No problems Musculoskeletal: No problems Neurological: No problems Skin: No problems Vital Signs - Temperature Temperature: 98.1 F Temperature Source: Temporal Artery Scan - Pulse Pulse Oximetery Pulse Rate: 71 Pulse Assessment Method: Automatic Cuff - Respirations Respiratory Rate: 16 Oxygen Delivery Method: Room Air O2 Sat by Pulse Oximetry: 99 - Blood Pressure Right Arm Blood Pressure: 139/65 Blood Pressure Mean: 89 Blood Pressure Source: Automatic Cuff Medical Screen Scoring (Pre) - Cervical Exam Dilation: 1-3 cm = 1 Membranes: Intact - Uterine Contractions Frequency: < 36 weeks = 6 Duration: > 40 seconds = 2 Intensity: N/A - Maternal Vital Signs Maternal Temperature: N/A Maternal Blood Pressure: N/A Signs of Preeclampsia: N/A Maternal Respirations: N/A - Maternal Trauma Maternal Trauma: N/A - Assessment - Baby A Baseline FHR: 135 Heart Rate - NICHD Category: Category I (Normal) = 0 NST: Reactive Position: N/A Station: N/A - Total Score - Baby A Total Score - Baby A: 9 - Total Score - Baby B Total Score - Baby B: 9 - Total Score - Baby C Total Score - Baby C: 9 - Level of Risk - Baby A Level of Risk - Baby A: Medium (6-9) - Level of Risk - Baby B Level of Risk - Baby B: Medium (6-9) - Level of Risk - Baby C Level of Risk - Baby C: Medium (6-9) Physician Notification (Pre) - Physician Notified Physician Notified Date: 08/05/20 Physician Notified Time: 19:16 New Order Received: Yes - Notification Comment Comment: FFN and UA sent, IV start fluid bolus, Terb and steroid shot given. Since interventions and medication, contractions have slowed down patient denies feeling any contractuons and only 3 traced from toco, cervix has made no change, order to discharge patient home, pt. to come back tomorrow for 2nd dose of steriod shot, and to follow up in office this week. Disposition - Disposition OB Disposition: Discharge to home Discharge Date: 08/05/20 Discharge Time: 21:30 I agree with the RN Medical Screening Exam: Yes Physician's MSE Comment: I have neither seen nor examined this patient. Case reviewed; plan agreed upon as documented in EMR&OBIX.: Yes Diagnosis: RELATED CONDITIONS, UNSPECIFIED, THIRD TRIMESTER
== END 2020-08-05 21:30 | disposition home or self-care (01) ==
LOC: FBPOP 18:43
PROVIDERS: ATTEND Obstetrics & Gynecology
DX: O26.93 Pregnancy related conditions, unspecified, third trimester (principal); Z3A.34 34 weeks gestation of pregnancy
CPT/HCPCS: 59025; 96360; 96361; 96372; 82731; 81003; G0463; J3105; J0702; 99214

== ENCOUNTER 2020-08-06 20:21 | Outpatient (CLI) | payer OTHER ==
[2020-08-06] MEDS ORDERED: BETAMET ACET-BETAMETH SOD PHOS 6 MG/ML MDV IM SCH (20:30)
[2020-08-06 21:01] VITALS: BP 124/74; PULSE 68; RESP 16; TEMP 97.2
== END 2020-08-06 20:52 | disposition home or self-care (01) ==
LOC: FBPOP 20:21
PROVIDERS: ATTEND Obstetrics & Gynecology
DX: O26.893 Other specified pregnancy related conditions, third trimester (principal)
CPT/HCPCS: 59025; 96372; J0702; 99213

== ENCOUNTER 2020-08-07 12:39 | Outpatient (CLI) | payer OTHER ==
[2020-08-07 13:05] VITALS: BP 126/59; PULSE 75; RESP 15; TEMP 97.1
== END 2020-08-07 14:23 | disposition home or self-care (01) ==
LOC: FBPOP 12:39
PROVIDERS: ATTEND Obstetrics & Gynecology
DX: O26.93 Pregnancy related conditions, unspecified, third trimester (principal); Z3A.34 34 weeks gestation of pregnancy
CPT/HCPCS: 59025; G0463; 99213

== ENCOUNTER 2020-08-19 05:45 | Inpatient (IN) | payer OTHER ==
[2020-08-19] MEDS ORDERED: LIDOCAINE 0.5% (PF) 5 MG/ML (50 ML SDV) SQ PRN (06:35)
[2020-08-19] MEDS ORDERED: PENICILLIN G POTASSIUM 5,000,000 UNIT in DEXTROSE 5% IN WATER 100 ML IVPB STA ×2 (06:35)
[2020-08-19] MEDS ORDERED: METHYLERGONOVINE 0.2 MG/ML 1 ML AMP IM PRN (06:35)
[2020-08-19] MEDS ORDERED: OXYTOCIN 10 UNIT/ML 1 ML VIAL IM PRN (06:35)
[2020-08-19] MEDS ORDERED: TERBUTALINE 1 MG/ML VIAL SQ PRN (06:35)
[2020-08-19] MEDS ORDERED: CARBOPROST TROMETHAMINE 250 MCG/ML 1 ML AMP IM PRN (06:35)
[2020-08-19] MEDS ORDERED: OXYTOCIN 30 UNITS/500 ML NS 30 UNIT in SALINE 1 500ML.BAG IV SCH ×2 (06:45→16:15)
[2020-08-19] MEDS: LACTATED RINGERS 1,000 ML IV SCH ×2 (07:11→12:30)
[2020-08-19 07:31] LABS: Basophils % (A) 0 %; Eosinophils # (A) 0.3 k/uL (0-0.7); Eosinophils % (A) 2 %; HCT 34.8 % (34.0-46.0); HGB 11.7 gm/dL (11.4-16.0); Lymphocytes # (A) 1.9 k/uL (1.0-4.8); Lymphocytes % (A) 13 %; MCHC 33.8 g/dL (31.0-37.0); Mean Platelet Volume 9.1; Monocytes # (A) 0.6 k/uL (0-1.0); Monocytes % (A) 4 %; Neutrophils # (A) 11.2 k/uL (1.3-7.7); Neutrophils % (A) 80 %; Platelet Count 150 k/uL (150-450); RBC 4.19 m/uL (3.80-5.40); RDW 13.9 % (11.5-15.5); WBC 14.1 k/uL (3.8-10.6)
[2020-08-19] MEDS ORDERED: BUTORPHANOL 1 MG/ML 1 ML VIAL IV PRN (10:37)
--- NOTE | 2020-08-19 10:43 | P.HPOB ---
History of Present Illness H&P Date: 08/19/20 Chief Complaint: 36-2/7 weeks, spontaneous rupture of membranes The patient is a 25-year-old 3 para 1102 admitted at 36-2/7 weeks as established by early ultrasound. Her has been complicated by episodes of contractions in the third trimester resulting in administration of betamethasone 2 times over a 24 hours band at approximately 34-35 weeks of . She presents to triage today with documented spontaneous rupture of membranes for clear fluid. heart rate tracing is category 1. She is not at that time renetta. Group B strep status is unknown at this time. She has requested tubal ligation either in the hospital or at 6 weeks' time. Obstetrical history 3 para 06/24/2001 with 1 term vaginal delivery and 136+ week vaginal delivery. Current statistics are listed in history of present illness. EDC of 09/13/2020 was established by an early ultrasound. Laboratory workup demonstrates a blood type of O+ with a negative antibody screen. Rubella status is immune. The remainder of the laboratory workup was within normal limits. One hour Glucola was elevated but followed by a normal three-hour glucose tolerance test. Group B strep status is undetermined and pending at this time as it was done 2 days ago. Gynecologic history: Unremarkable with no history of any infections to include STDs. Review of Systems Review of systems is confined to history of present illness. Past Medical History Past Medical History: No Reported History Additional Past Medical History / Comment(s): congenital cleft palate History of Any Multi-Drug Resistant Organisms: None Reported Past Surgical History: Ear Surgery, Hernia Repair Additional Past Surgical History / Comment(s): tubes in ears, facial/mouth reconstruction Past Anesthesia/Blood Transfusion Reactions: No Reported Reaction Past Psychological History: No Psychological Hx Reported Smoking Status: Never smoker Past Alcohol Use History: None Reported Past Drug Use History: None Reported - Past Family History Mother Family Medical History: Hypertension, Thyroid Disorder Medications and Allergies Home Medications Medication Instructions Recorded Confirmed Type Agi-Hnnn-Yajge Acid 1 each PO DAILY #30 cap 02/24/20 08/19/20 Rx [-U Capsule] Allergies Allergy/AdvReac Type Severity Reaction Status Date / Time No Known Allergies Allergy Verified 08/07/20 12:49 Exam Vital Signs Temp Pulse Pulse Resp BP BP 08/19/20 07:39 97.4 F L 100 14 128/72 08/19/20 06:02 97.4 F L 100 16 128/72 Intake and Output 08/18/20 08/19/20 08/19/20 22:59 06:59 14:59 Intake Total 0.8 Balance 0.8 Intake: Intake, IV Titration 0.8 Amount Oxytocin 30 Units/500 ml 0.8 Ns 30 unit In Saline 1 500ml.bag @ Per Protocol IV .Q0M PENDING SALE TO [facility] Rx#:[id number] Other: Weight 72.121 kg 72.121 kg In general, this is a well-developed, well-nourished white female in no acute distress. Her heart has a regular rhythm and rate without murmur. Her lungs are clear to auscultation bilaterally in all guillory. Her abdomen is gravid, nondistended, has normal active bowel sounds, soft, nontender, and without any palpable masses aside from uterine fundus. Her extremities are without any cyanosis, clubbing, or significant edema and are nontender to palpation bilaterally. Digital cervical examination performed by the nursing staff demonstrates her cervix to be 3 cm dilated, 70% effaced, the vertex in presentation at -2 station. Spontaneous rupture of membranes has been documented as noted above. Results Result Diagrams: 08/19/20 07:00 Abnormal Lab Results - Last 24 Hours (Table) 08/19/20 Range/Units 07:00 WBC 14.1 H (3.8-10.6) k/uL Neutrophils # 11.2 H (1.3-7.7) k/uL Assessment and Plan (1) 36 to 37 weeks gestation of Current Visit: No Status: Acute Code(s): YJS9175 - SNOMED Code(s): 225785625 (2) premature rupture of membranes Current Visit: No Status: Acute Code(s): O42.919 - PRETRM CHIN ROM, UNSP TIME BETW RUPT AND ONST LABR, UNSP TRI SNOMED Code(s): 993819097 Plan: The patient was started on antibiotic prophylaxis for unknown group B strep status shortly after arrival. She then had Pitocin augmentation started. She will continue have close maternal and surveillance and expectant management will be practiced. She is a good candidate for either IV or epidural analgesia, whichever she may choose.
[2020-08-19] MEDS: PENICILLIN G POTASSIUM 2,500,000 UNIT in DEXTROSE 5% IN WATER 100 ML IVPB SCH ×4 (11:47→15:27)
[2020-08-19] MEDS ORDERED: fentaNYL (PF) 50 MCG/ML 5 ML AMP ONE (13:00)
[2020-08-19] MEDS ORDERED: SODIUM CHLORIDE 0.9% 100 ML BAG ONE (13:00)
[2020-08-19] MEDS ORDERED: ROPIVACAINE 5MG/ML 20ML VIAL ONE (13:00)
[2020-08-19] MEDS ORDERED: HYDROCORTISONE 2.5% RECTAL CREAM 30 GM TUBE RECTAL PRN (16:10)
[2020-08-19] MEDS ORDERED: SIMETHICONE 80 MG CHEWABLE PO PRN (16:10)
[2020-08-19] MEDS ORDERED: diphenhydrAMINE 50 MG CAP PO PRN (16:10)
[2020-08-19] MEDS ORDERED: ZOLPIDEM 5 MG TAB PO PRN (16:10)
[2020-08-19] MEDS ORDERED: diphenhydrAMINE 25 MG CAP PO PRN (16:10)
[2020-08-19] MEDS ORDERED: diphenhydrAMINE 50 MG/ML 1 ML VIAL IVP PRN ×2 (16:10)
[2020-08-19] MEDS ORDERED: ACETAMINOPHEN TAB 325 MG TAB PO PRN (16:10)
[2020-08-19] MEDS ORDERED: BENZOCAINE/MENTHOL SPRAY 1 GM/SPRAY AEROSOL TOPICAL PRN (16:10)
[2020-08-19] MEDS ORDERED: LANOLIN CREAM 5 GM TUBE TOPICAL PRN (16:10)
[2020-08-19] MEDS ORDERED: IBUPROFEN 600 MG TAB PO PRN (16:10)
--- NOTE | 2020-08-19 16:14 | P.PROBDLV ---
Vaginal Delivery Note - . Vaginal Delivery Note: This is a 25-year-old that was admitted at 36-2/7 weeks with noted spontaneous rupture of membranes. Patient is a have a history of delivery, and this noted consultation of contractions resulting and administration of betamethasone 2 3435 weeks of . Patient was admitted to labor and delivery given spontaneous rupture of membranes. GBS was pending at that time therefore IV antibiotics were begun. Pitocin augmentation of labor was begun in addition per hospital protocol. Patient progressed in labor eventually becoming uncomfortable requesting epidural placement. Epidural was placed without difficulty by the anesthesia department. Patient progressed to complete began pushing and had normal spontaneous vaginal delivery of viable female at 1552 with noted body cord that was delivered through. After two-minute delayed the umbilical cord was doubly clamped and cut and the infant was handed off to the maternal abdomen. The placenta was then delivered spontaneously intact with a three-vessel cord being noted. Inspection the patient's vaginal vault first vaginal laceration was noted this was repaired with 3-0 Rapide in a hvnzxm-eg-kxawg fashion. Hemostasis was appreciated after repair. The uterus is noted to be firm below the umbilicus at this time. 200 mL of clear yellow urine were drained from the bladder after the delivery. Approximately 100 mL of estimate blood loss was appreciated. Patient and tolerated delivery well and are resting comfortably.
[2020-08-19] MEDS: SENNOSIDES-DOCUSATE SODIUM 1 EACH TAB PO SCH (20:23)
[2020-08-20] MEDS: SENNOSIDES-DOCUSATE SODIUM 1 EACH TAB PO SCH (08:38)
[2020-08-20] MEDS ORDERED: PRENATAL VIT-IRON-FOLIC ACID 1 EACH CAP PO SCH (09:00)
--- NOTE | 2020-08-20 10:24 | P.DS ---
Providers Date of admission: 08/19/20 06:11 Expected date of discharge: 08/20/20 Attending physician: Alban Winn Primary care physician: Stated None - Discharge Diagnosis(es) (1) Status post vaginal delivery Current Visit: Yes Status: Acute (2) First-degree perineal laceration during delivery Current Visit: Yes Status: Acute (3) 36 to 37 weeks gestation of Current Visit: No Status: Acute (4) premature rupture of membranes Current Visit: No Status: Acute Hospital Course: This is a pleasant 25-year-old 3 para 06/24/2002 that presented to labor and delivery at 36-3/7 weeks with premature rupture of membranes. Patient had been receiving routine care and has a history of labor/delivery. Patient had unknown GBS therefore antibiotics were begun. Pitocin augmentation of labor was begun after antibiotics were started. Patient progressed through labor eventually becoming uncomfortable and requesting epidural placement. Epidural was placed without difficulty by the anesthesia department. Patient got minimal relief from epidural progressed to complete began pushing and had a normal spontaneous vaginal delivery of a viable female at 1557, weight of 5 lbs. 13 oz. and Apgars of 8 and 9 at one and 5 minutes respectively. Patient did sustain a first-degree vaginal laceration whi ch was repaired with a pgzhlk-jb-koysr suture of 3-0 Rapide. Patient's course has been essentially uneventful. Patient's blood pressures were noted to be 130s over 80s and preeclampsia labs were obtained. Patient denies any signs or symptoms of preeclampsia. Patient would like discharge home at 24 hours. Patient is bottle feeding, and states her pain is well-controlled. Patient Condition at Discharge: Good Plan - Discharge Summary New Discharge Prescriptions: No Action Hat-Nzee-Ezffh Acid [-U Capsule] 1 each PO DAILY #30 cap Discharge Medication List Txe-Nslw-Mbhwx Acid [-U Capsule] 1 each PO DAILY #30 cap 02/24/20 [Rx] Follow up Appointment(s)/Referral(s): Marlin Sage MD [STAFF PHYSICIAN] - 2 Weeks Patient Instructions/Handouts: Vaginal Delivery (GEN), Vaginal Delivery (DC) Activity/Diet/Wound Care/Special Instructions: Preeclampsia signs and symptoms are discussed with patient and she will return prior with any concerns to the office. Patient is asked to follow-up in 2 weeks for blood pressure check. Routine instructions are reviewed and all questions are answered. Adcc-zbb-pzsyaqs ibuprofen as needed for discomfort. Discharge Disposition: HOME SELF-CARE
[2020-08-20 11:34] LABS: HCT 35.3 % (34.0-46.0); HGB 11.8 gm/dL (11.4-16.0); MCH 27.5 pg (25.0-35.0); MCHC 33.3 g/dL (31.0-37.0); MCV 82.6 fL (80.0-100.0); Mean Platelet Volume 9.4; Platelet Count 141 k/uL (150-450); RBC 4.28 m/uL (3.80-5.40); RDW 14.4 % (11.5-15.5); WBC 15.1 k/uL (3.8-10.6)
[2020-08-20 11:41] LABS: ALT 10 U/L (4-34); AST 19 U/L (14-36); African American GFR (CKD) >90 (>60 ml/min/1.73 sqM); Blood Urea Nitrogen 10 mg/dL (7-17); Non-African American GFR(CKD) >90 (>60 ml/min/1.73 sqM); Uric Acid 5.3 mg/dL (3.7-7.4)
[2020-08-20 15:04] VITALS: BP 121/74; PULSE 92; RESP 14; TEMP 98
== END 2020-08-20 17:18 | disposition home or self-care (01) | DRG 807 ==
LOC: FBPOP 05:45 → 4FBP 06:11
PROVIDERS: ADMIT Obstetrics & Gynecology; ATTEND Obstetrics & Gynecology
PROC: 3E0R3BZ Introduction of Anesthetic Agent into Spinal Canal, Percutaneous Approach (ICD-10-PCS; principal; 2020-08-19)
PROC: 00HU33Z Insertion of Infusion Device into Spinal Canal, Percutaneous Approach (ICD-10-PCS; principal; 2020-08-19)
PROC: 0HQ9XZZ Repair Perineum Skin, External Approach (ICD-10-PCS; principal; 2020-08-19)
PROC: 10E0XZZ Delivery of Products of Conception, External Approach (ICD-10-PCS; principal; 2020-08-19)
DX: O42.013 Preterm premature rupture of membranes, onset of labor within 24 hours of rupture, third trimester (principal); Z37.0 Single live birth; O70.0 First degree perineal laceration during delivery; Z87.730 Personal history of (corrected) cleft lip and palate; Z82.49 Family history of ischemic heart disease and other diseases of the circulatory system; Z83.49 Family history of other endocrine, nutritional and metabolic diseases
CPT/HCPCS: 59025; 82565; 84112; 84450; 84460; 84520; 84550; 85025; 85027; 86850; 86900; 86901; 99213

== ENCOUNTER 2020-10-13 13:29 | Emergency (ER) | payer OTHER ==
[2020-10-13 13:37] VITALS: TEMP 97.9
[2020-10-13] MEDS ORDERED: SODIUM CHLORIDE 0.9% 1,000 ML IV STA (13:51)
[2020-10-13] MEDS ORDERED: SODIUM CHLORIDE 0.9% 500 ML 500 ML IV STA (13:51)
[2020-10-13] MEDS ORDERED: PANTOPRAZOLE 40 MG/10 ML VIAL IVP STA (13:51)
[2020-10-13] MEDS ORDERED: ONDANSETRON 4 MG/2 ML VIAL IVP STA (13:51)
--- NOTE | 2020-10-13 14:32 | ED ---
General Adult HPI - General Chief complaint: Nausea/Vomiting/Diarrhea Stated complaint: nausea, abdominal pain Time Seen by Provider: 10/13/20 13:39 Source: patient, RN notes reviewed Mode of arrival: ambulatory Limitations: no limitations - History of Present Illness Initial comments: 25-year-old female presents emergency Department chief complaint of nausea, diarrhea, upset stomach. Patient states started around 10 AM she states she is ready pressure abdominal pain. Patient states she felt like she something bad. Patient denies fevers chills cough congestion chest pain leg pain dysuria no chance . - Related Data Previous Rx's Medication Instructions Recorded Ondansetron Odt [Zofran Odt] 4 mg PO Q8HR PRN #10 tab 10/13/20 Allergies Allergy/AdvReac Type Severity Reaction Status Date / Time No Known Allergies Allergy Verified 10/13/20 14:37 Review of Systems ROS Statement: Those systems with pertinent positive or pertinent negative responses have been documented in the HPI. ROS Other: All systems not noted in ROS Statement are negative. Past Medical History Past Medical History: No Reported History Additional Past Medical History / Comment(s): congenital cleft palate History of Any Multi-Drug Resistant Organisms: None Reported Past Surgical History: Ear Surgery, Hernia Repair Additional Past Surgical History / Comment(s): tubes in ears, facial/mouth reconstruction Past Anesthesia/Blood Transfusion Reactions: No Reported Reaction Past Psychological History: No Psychological Hx Reported Smoking Status: Never smoker Past Alcohol Use History: None Reported Past Drug Use History: None Reported - Past Family History Mother Family Medical History: Hypertension, Thyroid Disorder General Exam Limitations: no limitations General appearance: alert, in no apparent distress Head exam: Present: atraumatic, normocephalic, normal inspection Respiratory exam: Present: normal lung sounds bilaterally. Absent: respiratory distress, wheezes, rales, rhonchi, stridor Cardiovascular Exam: Present: regular rate, normal rhythm, normal heart sounds. Absent: systolic murmur, diastolic murmur, rubs, gallop, clicks GI/Abdominal exam: Present: soft, tenderness (Right upper quadrant), normal ryan l sounds. Absent: distended, guarding, rebound, rigid Back exam: Present: CVA tenderness (R), CVA tenderness (L) Neurological exam: Present: alert Skin exam: Present: warm, dry, intact, normal color. Absent: rash Course Vital Signs 10/13/20 13:34 Temperature 97.9 F Pulse Rate 75 Respiratory 16 Rate Blood Pressure 119/79 O2 Sat by Pulse 98 Oximetry Medical Decision Making - Medical Decision Making Ultrasound shows evidence of gallbladder polyp. Patient will be referred to on- call surgeon. Patient will back pain medication go fat diet return parameters were discussed. - Lab Data Result diagrams: 10/13/20 14:13 10/13/20 14:13 Lab Results 10/13/20 10/13/20 10/13/20 Range/Units 14:13 14:13 15:16 WBC 9.6 (3.8-10.6) k/uL RBC 5.04 (3.80-5.40) m/uL Hgb 14.0 (11.4-16.0) gm/dL Hct 42.4 (34.0-46.0) % MCV 84.1 (80.0-100.0) fL MCH 27.8 (25.0-35.0) pg MCHC 33.1 (31.0-37.0) g/dL RDW 15.1 (11.5-15.5) % Plt Count 279 (150-450) k/uL MPV 8.0 Neutrophils % 72 % Lymphocytes % 16 % Monocytes % 3 % Eosinophils % 6 % Basophils % 1 % Neutrophils # 6.9 (1.3-7.7) k/uL Lymphocytes # 1.6 (1.0-4.8) k/uL Monocytes # 0.3 (0-1.0) k/uL Eosinophils # 0.6 (0-0.7) k/uL Basophils # 0.1 (0-0.2) k/uL Sodium 139 (137-145) mmol/L Potassium 4.6 (3.5-5.1) mmol/L Chloride 104 (98-107) mmol/L Carbon Dioxide 23 (22-30) mmol/L Anion Gap 12 mmol/L BUN 9 (7-17) mg/dL Creatinine 0.57 (0.52-1.04) mg/dL Est GFR (CKD-EPI)AfAm >90 (>60 ml/min/1.73 sqM) Est GFR (CKD-EPI)NonAf >90 (>60 ml/min/1.73 sqM) Glucose 97 (74-99) mg/dL Calcium 9.5 (8.4-10.2) mg/dL Total Bilirubin 0.6 (0.2-1.3) mg/dL AST 27 (14-36) U/L ALT 22 (4-34) U/L Alkaline Phosphatase 97 (38-126) U/L Total Protein 8.1 (6.3-8.2) g/dL Albumin 4.8 (3.5-5.0) g/dL Amylase 47 (30-110) U/L Lipase 83 (23-300) U/L Urine Color Yellow Urine Appearance Clear (Clear) Urine pH 7.5 (5.0-8.0) Ur Specific [place] 1.015 (1.001-1.035) Urine Protein Negative (Negative) Urine Glucose (UA) Negative (Negative) Urine Ketones Negative (Negative) Urine Blood Small H (Negative) Urine Nitrite Negative (Negative) Urine Bilirubin Negative (Negative) Urine Urobilinogen <2.0 (<2.0) mg/dL Ur Leukocyte Esterase Negative (Negative) Urine RBC <1 (0-5) /hpf Urine WBC 1 (0-5) /hpf Ur Squamous Epith Cells 3 (0-4) /hpf Urine Mucus Rare H (None) /hpf Urine HCG, Qual (Not Detectd) 10/13/20 Range/Units 15:16 WBC (3.8-10.6) k/uL RBC (3.80-5.40) m/uL Hgb (11.4-16.0) gm/dL Hct (34.0-46.0) % MCV (80.0-100.0) fL MCH (25.0-35.0) pg MCHC (31.0-37.0) g/dL RDW (11.5-15.5) % Plt Count (150-450) k/uL MPV Neutrophils % % Lymphocytes % % Monocytes % % Eosinophils % % Basophils % % Neutrophils # (1.3-7.7) k/uL Lymphocytes # (1.0-4.8) k/uL Monocytes # (0-1.0) k/uL Eosinophils # (0-0.7) k/uL Basophils # (0-0.2) k/uL Sodium (137-145) mmol/L Potassium (3.5-5.1) mmol/L Chloride (98-107) mmol/L Carbon Dioxide (22-30) mmol/L Anion Gap mmol/L BUN (7-17) mg/dL Creatinine (0.52-1.04) mg/dL Est GFR (CKD-EPI)AfAm (>60 ml/min/1.73 sqM) Est GFR (CKD-EPI)NonAf (>60 ml/min/1.73 sqM) Glucose (74-99) mg/dL Calcium (8.4-10.2) mg/dL Total Bilirubin (0.2-1.3) mg/dL AST (14-36) U/L ALT (4-34) U/L Alkaline Phosphatase (38-126) U/L Total Protein (6.3-8.2) g/dL Albumin (3.5-5.0) g/dL Amylase (30-110) U/L Lipase (23-300) U/L Urine Color Urine Appearance (Clear) Urine pH (5.0-8.0) Ur Specific [place] (1.001-1.035) Urine Protein (Negative) Urine Glucose (UA) (Negative) Urine Ketones (Negative) Urine Blood (Negative) Urine Nitrite (Negative) Urine Bilirubin (Negative) Urine Urobilinogen (<2.0) mg/dL Ur Leukocyte Esterase (Negative) Urine RBC (0-5) /hpf Urine WBC (0-5) /hpf Ur Squamous Epith Cells (0-4) /hpf Urine Mucus (None) /hpf Urine HCG, Qual Not Detected (Not Detectd) Disposition Clinical Impression: Gallbladder polyp, Nausea vomiting and diarrhea Disposition: HOME SELF-CARE Condition: Stable Instructions (If sedation given, give patient instructions): Abdominal Pain (ED) Additional Instructions: Please return to the Emergency Department if symptoms worsen or any other concerns. Prescriptions: Ondansetron Odt [Zofran Odt] 4 mg PO Q8HR PRN #10 tab PRN Reason: Nausea Is patient prescribed a controlled substance at d/c from ED?: No Referrals: Wisam Davis DO [Primary Care Provider] - 1-2 days Dane Hoskins MD [Medical Doctor] - 1-2 days Time of Disposition: 15:50
[2020-10-13 14:57] LABS: Basophils # (A) 0.1 k/uL (0-0.2); Basophils % (A) 1 %; Eosinophils # (A) 0.6 k/uL (0-0.7); Eosinophils % (A) 6 %; HCT 42.4 % (34.0-46.0); Lymphocytes # (A) 1.6 k/uL (1.0-4.8); Lymphocytes % (A) 16 %; MCH 27.8 pg (25.0-35.0); MCHC 33.1 g/dL (31.0-37.0); MCV 84.1 fL (80.0-100.0); Monocytes # (A) 0.3 k/uL (0-1.0); Monocytes % (A) 3 %; Neutrophils # (A) 6.9 k/uL (1.3-7.7); Neutrophils % (A) 72 %; Platelet Count 279 k/uL (150-450); RBC 5.04 m/uL (3.80-5.40); RDW 15.1 % (11.5-15.5); WBC 9.6 k/uL (3.8-10.6)
[2020-10-13] MEDS ORDERED: KETOROLAC 15 MG/ML 1 ML VIAL IVP STA (15:00)
[2020-10-13 15:04] LABS: ALT 22 U/L (4-34); AST 27 U/L (14-36); African American GFR (CKD) >90 (>60 ml/min/1.73 sqM); Albumin 4.8 g/dL (3.5-5.0); Alkaline Phosphatase 97 U/L (38-126); Amylase 47 U/L (30-110); Anion Gap 12 mmol/L; Blood Urea Nitrogen 9 mg/dL (7-17); Calcium 9.5 mg/dL (8.4-10.2); Carbon Dioxide 23 mmol/L (22-30); Chloride 104 mmol/L (98-107); Glucose 97 mg/dL (74-99); Lipase 83 U/L (23-300); Non-African American GFR(CKD) >90 (>60 ml/min/1.73 sqM); Sodium 139 mmol/L (137-145); Total Bilirubin 0.6 mg/dL (0.2-1.3); Total Protein 8.1 g/dL (6.3-8.2)
--- NOTE | 2020-10-13 15:05 | US ---
EXAMINATION TYPE: US gallbladder DATE OF EXAM: 10/13/2020 COMPARISON: NONE CLINICAL HISTORY: pain. nausea, diarrhea, abdominal pain EXAM MEASUREMENTS: Liver Length: 17.7 cm Gallbladder Wall: 0.2 cm CBD: 0.5 cm Right Kidney: 11.0 x 3.2 x 3.7 cm Pancreas: wnl Liver: upper limits of normal in size Gallbladder: non-mobile hyperechoic areas noted, largest = 0.4cm ? polyps Evidence for sonographic Elkins's sign: no CBD: wnl Right Kidney: no evidence of hydronephrosis or mass IMPRESSION: Gallbladder polyps suggested.
[2020-10-13 15:13] LABS: Potassium 4.6 mmol/L (3.5-5.1)
[2020-10-13 15:29] LABS: Appearance,Urine Clear (Clear); Bilirubin,Urine Negative (Negative); Blood,Urine Small (Negative); Color,Urine Yellow; Glucose,Urine (UA) Negative (Negative); Ketones,Urine Negative (Negative); Leukocyte Esterase,Urine Negative (Negative); Mucus,Urine Rare /hpf; Nitrite,Urine Negative (Negative); PH, Urine 7.5 (5.0-8.0); Protein,Urine Negative (Negative); RBC,Urine <1 /hpf (0-5); Specific Gravity,Urine 1.015 (1.001-1.035); Squamous Epithelial Cell,Urine 3 /hpf (0-4); Urobilinogen,Urine <2.0 mg/dL (<2.0); WBC,Urine 1 /hpf (0-5)
[2020-10-13 15:57] VITALS: BP 125/67; PULSE 78; RESP 18
== END 2020-10-13 15:57 | disposition home or self-care (01) ==
LOC: EC 13:29
DX: K82.4 Cholesterolosis of gallbladder (principal); R11.2 Nausea with vomiting, unspecified; R19.7 Diarrhea, unspecified
CPT/HCPCS: 36415; 76705; 80053; 81001; 81025; 82150; 83690; 85025; 96361; 96374; 96375; 99284

== ENCOUNTER 2020-10-18 07:40 | Day surgery (SDC) | payer OTHER ==
[2020-10-17 09:09] VITALS: BMI 29.2
[~2020-10-18 07:40] MED LIST: DEXAMETHASONE SOD PHOSPHATE 4 MG/ML 1 ML VIAL IV ONE; LACTATED RINGERS 1,000 ML IV SCH; LIDOCAINE 1% (10MG/ML) FOR IV START INTRADERMA PRN; MIDAZOLAM 2 MG/2 ML VIAL IV PRN; ONDANSETRON 4 MG/2 ML VIAL IVP ONE; Pre Op ABX Message 1 EACH MISC MISCELLANE ONE
[2020-10-18] MEDS ORDERED: SUCCINYLCHOLINE CHLORIDE 100 MG/5 ML SYR IV ONE (08:53)
[2020-10-18] MEDS ORDERED: GLYCOPYRROLATE 0.2 MG/ML 2 ML VIAL ONE (08:53)
[2020-10-18] MEDS ORDERED: NEOSTIGMINE 1 MG/ML 10 ML VIAL ONE (08:53)
[2020-10-18] MEDS ORDERED: fentaNYL (PF) 50 MCG/ML 2 ML AMP ONE (08:53)
[2020-10-18] MEDS ORDERED: LIDOCAINE 1% INJ 10MG/ML (20 ML MDV) ONE (08:53)
[2020-10-18] MEDS ORDERED: KETOROLAC 15 MG/ML 1 ML VIAL ONE (08:53)
[2020-10-18] MEDS ORDERED: MIDAZOLAM 2 MG/2 ML VIAL ONE (08:53)
[2020-10-18] MEDS ORDERED: PROPOFOL 10 MG/ML 20 ML VIAL IV ONE (08:53)
[2020-10-18] MEDS ORDERED: ROCURONIUM 10 MG/ML (5 ML VIAL) IV ONE (08:53)
[2020-10-18] MEDS ORDERED: BUPIVACAINE (PF) 0.25% 30 ML VIAL SQ ONE ×2 (09:08)
--- NOTE | 2020-10-18 09:39 | P.OP ---
Date of Procedure: 10/18/20 Preoperative Diagnosis: Undesired fertility Postoperative Diagnosis: Same, normal-appearing tubes and ovaries bilaterally. No evidence of endometriosis or adhesions. Normal-appearing liver edge, gallbladder, pelvic sidewalls. Procedure(s) Performed: Laparoscopic tubal ligation with Filshie clips Anesthesia: ÁLVARO Surgeon: Marlin Sage Estimated Blood Loss (ml): 5 IV fluids (ml): 500 Urine output (ml): 300 Pathology: none sent Condition: stable Disposition: PACU Description of Procedure: Patient is brought to the operative suite where a general anesthetic is administered without difficulty. She's placed in the dorsal lithotomy position. The cervix, vagina, perineal body and abdomen are all prepped and draped in usual sterile fashion. The appropriate timeout is performed to assure proper patient and procedural identification. Urine hCG is negative. Bladder is drained for approximately 300 mL of clear yellow urine. Speculum was placed into the vagina, anterior lip of the cervix is grasped with an Allis clamp and an acorn cannula is attached to the clamp, speculum removed. Attention is now drawn to the abdomen. A small infraumbilical incision is made, varies needle is placed and placement is checked with hanging drop technique. Abdomen is insufflated under low filling pressures of approximately 6 mmHg for 3.8 L of CO2 gas. Varies needle is removed. Trochars placed and placement is atraumatic. A second incision is made suprapubically, and under direct visualization the second trocar is placed atraumatically. Uterus is now positioned anterior and lateral. The right fallopian tube is visualized in its entirety to the fimbriated end. A Filshie clip is placed in the isthmic portion of the tube with care to traverse the entire diameter of the tube into the mesal salpinx. The same procedure is carried out contralaterally, again fimbriated and visualized. Bilateral ovaries appear healthy and normal to inspection. The sidewalls are negative, liver edge and gallbladder are negative. Bowel appears normal. CO2 gas is now allowed to diffuse. The trochars are removed under direct visualization and the fascial defects are clean and dry. 4-0 undyed Monocryl is used in a subcuticular manner to reapproximate the incisional edges. They are injected with a total of 8 mL of quarter percent Marcaine plain to aid in analgesia. Steri-Strips and Mastisol are applied to the wounds. Instrument ation is removed from the cervix which is clean and dry. All sponge needle and instrument counts are correct at the end of the procedure. Patient is brought back to the recovery room in very good condition with stable vital signs including a blood pressure of 125/64, pulse 70, 100% O2 saturation. She is given Toradol prior to leaving the operative suite. She will follow-up with me in the office in 2 weeks.
[2020-10-18 09:45] VITALS: TEMP 97.3
[2020-10-18] MEDS: HYDROmorphone 0.5 MG/0.5 ML SYRINGE IVP PRN ×3 (10:13→10:36)
[2020-10-18 10:59] VITALS: BP 122/81; PULSE 104; RESP 18
== END 2020-10-18 11:45 | disposition home or self-care (01) ==
LOC: OR 07:40
PROVIDERS: ATTEND Obstetrics & Gynecology
DX: Z30.2 Encounter for sterilization (principal)
CPT/HCPCS: 58671; 81025; J2250; J1100; J2710; J2405; J2001; J3010; J1885; J0330; J2704; J1170

== ENCOUNTER 2020-12-08 22:17 | Emergency (ER) | payer OTHER ==
--- NOTE | 2020-12-09 00:09 | XR ---
EXAMINATION TYPE: XR chest 2V DATE OF EXAM: 12/08/2020 COMPARISON: 06/20/2016 HISTORY: Cough and congestion TECHNIQUE: 2 views FINDINGS: Heart and mediastinum are normal. Lungs are clear. Diaphragm is normal. Bony thorax is inta ct. IMPRESSION: Normal chest. Normal heart. No change.
--- NOTE | 2020-12-09 00:22 | ED ---
URI HPI - General Chief Complaint: Upper Respiratory Infection Stated Complaint: Chest pain,Head pain Time Seen by Provider: 12/08/20 23:14 Source: patient, RN notes reviewed Mode of arrival: wheelchair Limitations: no limitations - History of Present Illness Initial Comments: Patient is a 25-year-old female that presents to emergency room complaining of upper respiratory tract symptoms including cough and some sinus congestion. She notes that she's been taking Sudafed and Tylenol for aches pains and congestion. She notes that the symptoms of been going on for the last 2-3 days. She notes the cough is dry. She notes that she has not been tested for Covid while patient was she does have a history of mono. She denied any chest pain or productive cough shortness breath headache nausea vomiting diarrhea constipation fever fatigue chills. - Related Data Home Medications Medication Instructions Recorded Confirmed Acetaminophen Tab [Tylenol Tab] 500 mg PO Q6H PRN 12/08/20 12/08/20 Pseudoephedrine 12Hr [Sudafed 12Hr] 120 mg PO Q12H PRN 12/08/20 12/08/20 Allergies Allergy/AdvReac Type Severity Reaction Status Date / Time No Known Allergies Allergy Verified 12/08/20 23:39 Review of Systems ROS Statement: Those systems with pertinent positive or pertinent negative responses have been documented in the HPI. ROS Other: All systems not noted in ROS Statement are negative. Past Medical History Past Medical History: No Reported History Additional Past Medical History / Comment(s): congenital cleft palate History of Any Multi-Drug Resistant Organisms: None Reported Past Surgical History: Cholecystectomy, Ear Surgery, Hernia Repair, Tubal Ligation Additional Past Surgical History / Comment(s): tubes in ears, facial/mouth reconstruction Past Anesthesia/Blood Transfusion Reactions: No Reported Reaction Past Psychological History: No Psychological Hx Reported Smoking Status: Never smoker Past Alcohol Use History: Occasional Past Drug Use History: Marijuana - Past Family History Mother Family Medical History: Hypertension, Thyroid Disorder General Exam Limitations: no limitations General appearance: alert, in no apparent distress, obese Head exam: Present: atraumatic, normocephalic, normal inspection Eye exam: Present: normal appearance, PERRL, EOMI. Absent: scleral icterus, conjunctival injection, periorbital swelling ENT exam: Present: other (Mild tenderness over the maxillary sinuses with palpation.) Neck exam: Present: normal inspection Respiratory exam: Present: normal lung sounds bilaterally. Absent: respiratory distress, wheezes, rales, rhonchi, stridor Cardiovascular Exam: Present: regular rate, normal rhythm, normal heart sounds. Absent: systolic murmur, diastolic murmur, rubs, gallop, clicks GI/Abdominal exam: Present: soft, normal bowel sounds. Absent: distended, tenderness, guarding, rebound, rigid Extremities exam: Present: normal inspection, full ROM, normal capillary refill. Absent: tenderness, pedal edema, joint swelling, calf tenderness Neurological exam: Present: alert, oriented X3 Psychiatric exam: Present: normal affect, normal mood Skin exam: Present: warm, dry, intact, normal color. Absent: rash Course Vital Signs 12/08/20 12/09/20 22:26 01:48 Temperature 98.7 F 98.6 F Pulse Rate 105 H 99 Respiratory 18 20 Rate Blood Pressure 113/75 110/71 O2 Sat by Pulse 99 99 Oximetry Medical Decision Making - Medical Decision Making 25-year-old female complaining of upper respiratory tract symptoms with sinus congestion for the past 2 days. Covid test, Deonna-Esparza panel, strep test, chest x-ray ordered. Covid test negative. Case discussed with Dr. Ashford, patient can discharge home with follow-up primary care. - Lab Data Lab Results 12/08/20 12/08/20 Range/Units 23:54 23:54 Coronavirus (PCR) Not Detected (Not Detectd) Group A Strep Rapid Negative (Negative) - Radiology Data Radiology results: report reviewed, image reviewed Chest x-ray: Normal chest. Normal heart. No change. Disposition Clinical Impression: Sinusitis Disposition: HOME SELF-CARE Condition: Stable Instructions (If sedation given, give patient instructions): Upper Respiratory Infection (ED) Additional Instructions: Please return to the Emergency Department if symptoms worsen or any other concerns. Follow-up with primary care in the next several days. Can use Flonase and Claritin to help with inflammation and sinus symptoms. Continue take Tylenol Motrin as needed for pain and fever. Is patient prescribed a controlled substance at d/c from ED?: No Referrals: Wisam Davis DO [Primary Care Provider] - 1-2 days Time of Disposition: 01:51
[2020-12-09 01:50] VITALS: BP 110/71; PULSE 99; RESP 20; TEMP 98.6
== END 2020-12-09 02:04 | disposition home or self-care (01) ==
LOC: EC 22:17
DX: J32.9 Chronic sinusitis, unspecified (principal); F12.90 Cannabis use, unspecified, uncomplicated; Z90.49 Acquired absence of other specified parts of digestive tract; Z90.09 Acquired absence of other part of head and neck
CPT/HCPCS: 71046; 87081; 87430; 87635; 99283

== ENCOUNTER 2021-01-26 11:32 | Emergency (ER) | payer OTHER ==
--- NOTE | 2021-01-26 12:04 | ED ---
General Adult HPI - General Chief complaint: Upper Respiratory Infection Stated complaint: sorethroat Time Seen by Provider: 01/26/21 11:36 Source: patient Mode of arrival: ambulatory Limitations: no limitations - History of Present Illness Initial comments: 25-year-old female presents to the emergency room for not feeling well. Patient reports that she has had nasal congestion for 3 weeks. States for the past week her throat has really been hurting her. She has had a slight cough as well. Patient has not had any fevers. She denies shortness of breath. Patient has not been immunized for coronavirus.Patient has no other complaints at this time including shortness of breath, chest pain, abdominal pain, nausea or vomiting, headache, or visual changes. - Related Data Previous Rx's Medication Instructions Recorded Amoxicillin/Potassium Clav 1 tab PO Q12HR #20 tab 01/26/21 [Augmentin 875-125 Tablet] Fluticasone Nasal [place] [Flonase 1 spray EA NOSTRIL DAILY 7 Days #1 01/26/21 Nasal [place]] bottle Loratadine [Claritin] 10 mg PO DAILY #20 tab 01/26/21 guaiFENesin [Mucinex] 600 mg PO Q12HR PRN #20 tablet.er 01/26/21 Allergies Allergy/AdvReac Type Severity Reaction Status Date / Time No Known Allergies Allergy Verified 01/26/21 12:49 Review of Systems ROS Statement: Those systems with pertinent positive or pertinent negative responses have been documented in the HPI. ROS Other: All systems not noted in ROS Statement are negative. Past Medical History Past Medical History: No Reported History Additional Past Medical History / Comment(s): congenital cleft palate History of Any Multi-Drug Resistant Organisms: None Reported Past Surgical History: Cholecystectomy, Ear Surgery, Hernia Repair, Tubal Ligation Additional Past Surgical History / Comment(s): tubes in ears, facial/mouth reconstruction Past Anesthesia/Blood Transfusion Reactions: No Reported Reaction Past Psychological History: No Psychological Hx Reported Smoking Status: Never smoker Past Alcohol Use History: Occasional Past Drug Use History: Marijuana - Past Family History Mother Family Medical History: Hypertension, Thyroid Disorder General Exam Limitations: no limitations General appearance: alert, in no apparent distress Head exam: Present: atraumatic, normocephalic, normal inspection Eye exam: Present: normal appearance, PERRL, EOMI. Absent: scleral icterus, conjunctival injection, periorbital swelling ENT exam: Present: mucous membranes moist, TM's normal bilaterally, normal external ear exam, other (Tenderness to the frontal sinuses. No swelling or edema. No tenderness to the maxillary sinuses.). Absent: normal oropharynx (Postnasal drainage noted) Neck exam: Present: normal inspection, full ROM. Absent: tenderness Respiratory exam: Present: normal lung sounds bilaterally. Absent: respiratory distress, wheezes, rales, rhonchi, stridor Cardiovascular Exam: Present: regular rate, normal rhythm, normal heart sounds. Absent: systolic murmur, diastolic murmur, rubs, gallop, clicks Course Vital Signs 01/26/21 11:33 Temperature 98.0 F Pulse Rate 67 Respiratory 16 Rate Blood Pressure 120/85 O2 Sat by Pulse 98 Oximetry Medical Decision Making - Medical Decision Making Healthy 25-year-old female presents for congestion and sore throat. Congestion has been ongoing for 3 weeks and sore throat has been 5 days. Vitals are stable. On exam patient does have a moderate amount of postnasal drip as well as tenderness to the frontal sinuses. Jackson virus strep and chest x-ray are negative for acute process. At this time given symptoms of sinusitis for 3 weeks patiently treated with an antibiotic and supportive care. She will follow-up with her doctor. She will return for any worsening symptoms. - Lab Data Lab Results 01/26/21 01/26/21 Range/Units 11:55 11:55 Coronavirus (PCR) Not Detected (Not Detectd) Group A Strep Rapid Negative (Negative) Disposition Clinical Impression: Sinusitis Disposition: HOME SELF-CARE Condition: Good Instructions (If sedation given, give patient instructions): Upper Respiratory Infection (ED) Additional Instructions: Please take medications as directed. Follow-up with your doctor in one to 2 days. If you have worsening symptoms return to the emergency room. Prescriptions: Amoxicillin/Potassium Clav [Augmentin 875-125 Tablet] 1 tab PO Q12HR #20 tab Loratadine [Claritin] 10 mg PO DAILY #20 tab Fluticasone Nasal [place] [Flonase Nasal [place]] 1 spray EA NOSTRIL DAILY 7 Days #1 bottle guaiFENesin [Mucinex] 600 mg PO Q12HR PRN #20 tablet.er PRN Reason: Congestion Is patient prescribed a controlled substance at d/c from ED?: No Referrals: Wisam Davis DO [Primary Care Provider] - 1-2 days Time of Disposition: 13:06
--- NOTE | 2021-01-26 13:01 | XR ---
EXAMINATION TYPE: XR chest 1V portable DATE OF EXAM: 01/26/2021 COMPARISON: 12/09/2020 INDICATION: Cough and sore throat congestion TECHNIQUE: Single frontal view of the chest is obtained. FINDINGS: The heart size is normal. The pulmonary vasculature is normal. The lungs are clear. IMPRESSION: 1. No acute pulmonary process.
[2021-01-26 13:16] VITALS: BP 124/86; PULSE 74; RESP 18; TEMP 98.2
== END 2021-01-26 13:16 | disposition home or self-care (01) ==
LOC: EC 11:32
DX: J32.1 Chronic frontal sinusitis (principal); F12.90 Cannabis use, unspecified, uncomplicated; Z82.49 Family history of ischemic heart disease and other diseases of the circulatory system; Z83.49 Family history of other endocrine, nutritional and metabolic diseases; Z79.899 Other long term (current) drug therapy
CPT/HCPCS: 71045; 87081; 87430; 87635; 99283

== ENCOUNTER → 2021-03-23 | Outpatient (CLI) | payer OTHER ==
--- NOTE | 2021-03-23 07:58 | CT ---
EXAMINATION TYPE: CT iac wo con DATE OF EXAM: 03/23/2021 COMPARISON: 06/11/2018 HISTORY: bilateral ear pain, loss of hearing CT DLP: 150mGycm Automated exposure control for dose reduction was used. FINDINGS: Partial bilateral mastoidectomies redemonstrated. Fluid and thickening is now evident within the left -sided mastoidectomy cavity. Right-sided mastoidectomy cavity is within normal limits. Left ossicular implant is again noted with persistent thickening of the left tympanic membrane. Previ ously noted soft tissue density about the epitympanum may reflect granulation tissue or residual chol esteatoma. The ossicular chain on the right again appears intact. There is soft tissue density extending from th e scutum along the tympanic membrane retracted tympanic membrane into the mesial tympanum to the oval window. This appears stable from the prior study and again could represent cholesteatoma with minima l blunting of the scutum. Mild mucosal thickening of the maxillary sinuses and ethmoid air cells redemonstrated. Sphenoid sinus is well aerated. Semicircular canals and vestibules bilaterally are unremarkable. Internal auditory canals are symmetric. IMPRESSION: 1. Left-sided mastoidectomy cavity demonstrates fluid and thickening and underlying infection is not excluded. 2. Bilateral lower residual cholesteatoma and/or granulation tissue persists essentially unchanged. T he above.
== END | disposition home or self-care (01) ==
LOC: RADCTMAIN 07:19
PROVIDERS: ATTEND Nurse Practitioner Family
DX: H74.8X2 Other specified disorders of left middle ear and mastoid (principal)
CPT/HCPCS: 70480